=== PATIENT | female | born 1990 | race Caucasian/White ===

== ENCOUNTER 2016-09-05 19:50 | Emergency (ER) | payer BC, MEDICAID ==
[~2016-09-05] VITALS: Ht 160 cm; Wt 106.1 kg
--- NOTE | 2016-09-05 21:28 | ED EENT ---
History of Present Illness General Chief Complaint: Oral/Throat Problems Stated Complaint: SORE THROAT Nursing Triage Note: c/o sore throat since Wed. Hoarse voice noted. Denies known fever. History of Present Illness Time seen by provider: 08:25 Initial Comments Initial evaluation for sore throat. Patient reports that it began 3 days ago, she noticed some improvement, and then it worsened today. Timing/Duration: last week Severity: moderate Location: throat Prearrival Treatment: no prearrival treatment Modifying Factors: Improves With Rest Associated Symptoms: denies symptoms Allergies and Home Medications Allergies Coded Allergies: No Known Drug Allergies (Unverified , 06/25/10) Home Medications Azithromycin 500 Mg Tablet #4 500 MG PO DAILY Prescribed by: RUBENS JUAREZ on 09/05/162133 Review of Systems Constitutional: no symptoms reported see HPI Eyes: No Symptoms Reported See HPI Ears: No Symptoms Reported See HPI Nose: no symptoms reported see HPI Mouth: no symptoms reported see HPI Throat: see HPI pain hoarse painful swallowing Respiratory: no symptoms reported see HPI Cardiovascular: no symptoms reported see HPI Gastrointestinal: see HPI : No Musculoskeletal: no symptoms reported see HPI Skin: no symptoms reported see HPI Neurological: No Symptoms Reported See HPI Hematologic/Lymphatic: No Symptoms Reported See HPI Immunological/Allergic: no symptoms reported see HPI All Other Systems Reviewed Negative Unless Noted: Yes Past Dmaenhk-Eskemj-Ygtbmb Hx Patient Social History Alcohol Use: Occasionally Uses Recreational Drug Use: No Smoking Status: Never a Smoker Recent Foreign Travel: No Contact w/Someone Who Travel: No Recent Infectious Disease Expo: No Recent Hopitalizations: No Surgeries HX Surgeries: Yes (ear tubes age 8) Respiratory Hx Respiratory Disorders: No Cardiovascular Hx Cardiac Disorders: Yes Neurological Hx Neurological Disorders: No Reproductive System : No (10 days late on menses) Hx Reproductive Disorders: No Genitourinary Hx Genitourinary Disorders: No Gastrointestinal Hx Gastrointestinal Disorders: No Musculoskeletal Hx Musculoskeletal Disorders: No Endocrine Hx Endocrine Disorders: No HEENT HX ENT Disorders: No Psychosocial Hx Psychiatric Problems: No Blood Transfusions Hx Blood Disorders: No Reviewed Nursing Assessment Reviewed/Agree w Nursing PMH: Yes Physical Exam Vital Signs Vital Sign - Last 12Hours 09/05/16 20:21 Temp 99.5 Pulse 70 Resp 16 B/P 133/95 Pulse Ox 98 General Appearance: WD/WN no apparent distress Eyes: bilateral eye EOMI, bilateral eye PERRL, bilateral eye normal inspection Ears: bilateral ear TM normal, bilateral ear auricle normal, bilateral ear canal normal Nose: normal inspectionNo discharge Mouth/Throat: normal mouth inspectionNo dental tenderness, pharynx swelling pharynx tenderness tonsillar swelling voice changes Neck: full range of motion normal inspection lymphadenopathy (R) lymphadenopathy (L) Cardiovascular: normal peripheral pulses regular rate, rhythm no murmur Respiratory: chest non-tender lungs clear normal breath sounds Gastrointestinal: normal bowel sounds non tender soft Neurologic/Psychiatric: no motor/sensory deficits alert normal mood/affect oriented x 3 Skin: normal color warm/dryNo rash Progress/Results/Core Measures Results/Orders Lab Results Laboratory Tests Test 09/05/16 20:15 Range/Units Group A Streptococcus Screen NEGATIVE NEGATIVE My Orders Orders-RUBENS JUAREZ Urine Bedside (09/05/16 20:47) Azithromycin Tablet (Zithromax Tablet) (09/05/16 21:29) Vital Signs/I&O Vital Sign - Last 12Hours 09/05/16 09/05/16 20:21 21:45 Temp 99.5 97.0 Pulse 70 76 Resp 16 18 B/P 133/95 Pulse Ox 98 100 Blood Pressure Mean: 108 Point of Care Testing Urine -Bedside: Negative Progress Note : Time: 08:30 Progress Note Initial evaluation completed, group A strep negative. Patient reports being approximately 10 days late for her menstrual cycle, LMP 07/29/16. Will await bedside hCG for treatment plan. 2114 urine hCG negative. Treatment with Zithromax 500 mg po 5 days, first dose to be given prior to dismissal Departure Impression Impression: Primary Impression: Acute pharyngitis Qualified Code: J02.8 - Acute pharyngitis due to other specified organisms Disposition: HOME, SELF-CARE Condition: Stable Departure-Patient Inst. Decision time for Depature: 21:15 Referrals: NO,LOCAL PHYSICIAN (PCP) Primary Care Physician Patient Instructions: Sore Throat, Adult (DC) Add. Discharge Instructions: All discharge instructions reviewed with patient and/or family. Voiced understanding. Salt water gargles with warm water, every 1-2 hours when necessary Warm or cold fluids, 1-2 cups per hour. Alternate Tylenol 650 mg and ibuprofen 600 mg for fever or pain Return to emergency room for fever, difficulty breathing, difficulty swallowing , or changes in symptoms. Scripts Azithromycin 500 Mg [id number] Mg PO DAILY #4 TAB Ref 0 Prov:RUBENS JUAREZ 09/05/16 RUBENS JUAREZ Sep 05, 2016 21:28
[2016-09-05] MEDS ORDERED: AZITHROMYCIN 250 MG TAB (ZITHROMAX) PO STA (21:29)
[2016-09-05] MEDS ORDERED: AZIT500T5 PO (21:34)
[2016-09-05 21:45] VITALS: BP 145/99
== END 2016-09-05 21:45 | disposition home or self-care (01) ==
LOC: EDUNIT# 19:50 → ER 19:54
DX: J02.9 Acute pharyngitis, unspecified (principal)
CPT/HCPCS: 84703; 87430; 99282

== ENCOUNTER 2017-12-16 05:29 | Outpatient (CLI) | payer BC ==
[~2017-12-16] VITALS: Ht 160 cm; Wt 92.1 kg
[~2017-12-16 05:29] MED LIST: AZIT500T5 PO
[2017-12-20] MEDS ORDERED: IBUP-1773 PO (07:13)
[2017-12-20] MEDS ORDERED: ACHD5005 PO (07:13)
== END 2017-12-16 08:52 ==
LOC: PREOP 05:29
PROVIDERS: ATTEND Obstetrics & Gynecology
DX: Z01.818 Encounter for other preprocedural examination (principal); O02.1 Missed abortion

== ENCOUNTER 2017-12-19 09:52 | Emergency (ER) | payer BC ==
[~2017-12-19] VITALS: Ht 160 cm; Wt 92.1 kg
[2017-12-19 11:51] LABS: BASOPHILS % (AUTO) 0 % (0-10); EOSINOPHILS # (AUTO) 0.1 10^3/uL (0.0-0.3); EOSINOPHILS % (AUTO) 1 % (0-10); HEMATOCRIT 35 % (35-52); HEMOGLOBIN 11.9 G/DL (11.5-16.0); LYMPHOCYTES # (AUTO) 1.6 X 10^3 (1.0-4.0); LYMPHOCYTES % (AUTO) 18 % (12-44); MEAN CORPUSCULAR HEMOGLOBIN 27 PG (25-34); MEAN CORPUSCULAR HGB CONC 34 G/DL (32-36); MEAN CORPUSCULAR VOLUME 81 FL (80-99); MEAN PLATELET VOLUME 9.3 FL (7.4-10.4); MONOCYTES # (AUTO) 0.4 X 10^3 (0.0-1.0); MONOCYTES % (AUTO) 5 % (0-12); NEUTROPHILS # (AUTO) 6.7 X 10^3 (1.8-7.8); NEUTROPHILS % (AUTO) 76 % (42-75); PLATELET COUNT 253 10^3/uL (130-400); RED BLOOD COUNT 4.35 10^6/uL (4.35-5.85); RED CELL DISTRIBUTION WIDTH 14.4 % (10.0-14.5); WHITE BLOOD COUNT 8.9 10^3/uL (4.3-11.0)
[2017-12-19] MEDS ORDERED: TRAM50TA2 PO (12:03)
--- NOTE | 2017-12-19 12:04 | ED GU-Female ---
General Chief Complaint: -Female Stated Complaint: VAGINAL BLEEDING/ DNC SCHEDULED 12/20/17 Nursing Triage Note: pt ambulatory to the ed. pt states she is having a miscarriage and is scheduled for a d&c tomorrow with dr cavanaugh. pt believes she is approx 11 weeks and was told it was a blited ovum. pt states this is her second and has one living child. pt c/o pressure and cramps. pt states she is passing small clots to the size of baseball. soaked three pads in two hours. Nursing Sepsis Screen: No Definite Risk Source: patient Exam Limitations: no limitations History of Present Illness Date Seen by Provider: Dec 19, 2017 Time Seen by Provider: 11:50 Initial Comments The patient presents to ER by private conveyance with a chief complaint that she found out last week Wednesday 7 days ago she was having a miscarriage based on ultrasound did not show a pole in the sac. Dr. CAVANAUGH her VISITOR SERVICES REPRESENTATIVE ran some tests and then we discussed other options and decided to schedule for a D&C tomorrow. Today she started having a couple of large red blood clots pass as well as some cramping pain. She has not taken any Tylenol she did take an Aleve last night which worked for a while and today she took a Midol but then after she had the blood clots she panicked and called a friend who told her to go to the ER. She's not having any pain or nausea right now. She's not having any chest pain shortness of breath. She does not have a history of coronary disease but she says she does have a history of being anemic with her last . Allergies and Home Medications Allergies Coded Allergies: No Known Drug Allergies (Unverified , 06/25/10) Home Medications No Active Prescriptions or Reported Meds Patient Home Medication List Home Medication List Reviewed: Yes Review of Systems Constitutional: No chills, No diaphoresis, No fever EENTM: No hearing loss, No ear pain, No eye pain Respiratory: No cough, No short of breath Cardiovascular: No chest pain, No Hx of Intervention, No palpitations Gastrointestinal: abdominal pain; No constipation, No diarrhea, No nausea Genitourinary: denies burning, denies discharge, denies dysuria : No (incomplete miscarriage) Musculoskeletal: No back pain, No joint pain Skin: No pruritus, No rash Psychiatric/Neurological: Denies Headache, Denies Numbness Past Bxlavfc-Wgqyjx-Ujblcq Hx Patient Social History Alcohol Use: Denies Use Recreational Drug Use: No Recent Foreign Travel: No Contact w/Someone Who Travel: No Recent Infectious Disease Expo: No Recent Hopitalizations: No Seasonal Allergies Seasonal Allergies: Yes Past Medical History Surgeries: Yes (BMT, ) Respiratory: No Cardiac: No Neurological: No : Yes (active miscarriage) Hx : 1 Hx Para: 2 Hx Total # of Abortions (Sp): 0 Reproductive Disorders: No Gastrointestinal: No Musculoskeletal: No Endocrine: No Cancer: No Psychosocial: No Integumentary: No Blood Disorders: No Physical Exam Vital Signs Vital Signs - First Documented 12/19/17 11:24 Temp 97.9 Pulse 73 Resp 14 B/P (MAP) 143/91 (108) O2 Delivery Room Air Capillary Refill : Less Than 3 Seconds General Appearance: WD/WN, no apparent distress HEENT: PERRL/EOMI, pharynx normal Neck: non-tender, normal inspection Cardiovascular: normal peripheral pulses, regular rate, rhythm, no edema Respiratory: no respiratory distress, no accessory muscle use Extremities: normal inspection, no pedal edema, normal capillary refill Neurologic/Psychiatric: alert, normal mood/affect, oriented x 3 Skin: normal color, warm/dry Progress/Results/Core Measures Suspected Sepsis Recent Fever Within 48 Hours: No Infection Criteria Present: None New/Unexplained Altered Menta: No Sepsis Screen: No Definite Risk SIRS Temperature:97.9 Pulse: 73 Respiratory Rate: 14 Laboratory Tests 12/19/17 11:42: White Blood Count 8.9 Blood Pressure 143 /91 Mean: 108 Laboratory Tests 12/19/17 11:42: Platelet Count 253 Results/Orders Lab Results Laboratory Tests Test 12/19/17 11:42 Range/Units White Blood Count 8.9 4.3-11.0 10^3/uL Red Blood Count 4.35 4.35-5.85 10^6/uL Hemoglobin 11.9 11.5-16.0 G/DL Hematocrit 35 35-52 % Mean Corpuscular Volume 81 80-99 FL Mean Corpuscular Hemoglobin 27 25-34 PG Mean Corpuscular Hemoglobin Concent 34 32-36 G/DL Red Cell Distribution Width 14.4 10.0-14.5 % Platelet Count 253 130-400 10^3/uL Mean Platelet Volume 9.3 7.4-10.4 FL Neutrophils (%) (Auto) 76 H 42-75 % Lymphocytes (%) (Auto) 18 12-44 % Monocytes (%) (Auto) 5 0-12 % Eosinophils (%) (Auto) 1 0-10 % Basophils (%) (Auto) 0 0-10 % Neutrophils # (Auto) 6.7 1.8-7.8 X 10^3 Lymphocytes # (Auto) 1.6 1.0-4.0 X 10^3 Monocytes # (Auto) 0.4 0.0-1.0 X 10^3 Eosinophils # (Auto) 0.1 0.0-0.3 10^3/uL Basophils # (Auto) 0.0 0.0-0.1 10^3/uL Vital Signs/I&O 12/19/17 11:24 Temp 97.9 Pulse 73 Resp 14 B/P (MAP) 143/91 (108) O2 Delivery Room Air Capillary Refill : Less Than 3 Seconds Blood Pressure Mean: 108 Progress Note : Time: 12:00 Progress Note CBC demonstrates healthy hemoglobin. Relievers and tramadol as well as instructions to use NSAIDs followed by Tylenol followed by heating pads followed by tramadol. Departure Impression Primary Impression: Incomplete miscarriage with blood clot Disposition: HOME, SELF-CARE Condition: Stable Departure-Patient Inst. Decision time for Depature: 12:01 Referrals: NO,LOCAL PHYSICIAN (PCP) Primary Care Physician DOUGLAS CAVANAUGH DO Patient Instructions: Dealing With Miscarriage Add. Discharge Instructions: If you have pain you should start with 2 Aleve or for ibuprofen followed by Tylenol and heating pads, rest and getting something to drink such as water. If this does not help your pain then you can use tramadol 1 tablet every 6 hours. Keep your follow-up appointment tomorrow. All discharge instructions reviewed with patient and/or family. Voiced understanding. Scripts Tramadol HCl (Tramadol HCl) 50 Mg Tablet 50 MG PO Q6H PRN for PAIN, #20 TAB 0 Refills Prov: ROBB BURTON 12/19/17 Copy Copies To 1: DOUGLAS CAVANAUGH TITUS J Dec 19, 2017 12:04
[2017-12-19 12:11] VITALS: BP 143/91
[2017-12-20] MEDS ORDERED: ACHD5005 PO (07:13)
[2017-12-20] MEDS ORDERED: IBUP-1773 PO (07:13)
== END 2017-12-19 12:11 | disposition home or self-care (01) ==
LOC: EDUNIT# 09:52 → ER 09:55
DX: O03.2 Embolism following incomplete spontaneous abortion (principal); Z3A.11 11 weeks gestation of pregnancy
CPT/HCPCS: 36415; 85025; 99282

== ENCOUNTER 2017-12-20 05:48 | Day surgery (SDC) | payer BC ==
[~2017-12-20] VITALS: Ht 160 cm; Wt 92.1 kg
[~2017-12-20 05:48] MED LIST changes: +TRAM50TA2 PO
[2017-12-20 06:20] VITALS: BP 121/80
[2017-12-20] MEDS ORDERED: LACTATED RINGERS 1,000 ML IV PRN (06:28)
[2017-12-20] MEDS ORDERED: fentaNYL INJECTION 100 MCG/2 ML AMP ONE (06:41)
[2017-12-20] MEDS ORDERED: DEXAMETHASONE 10 MG/ML (DECADRON) 1 ML VIAL ONE (06:41)
[2017-12-20] MEDS ORDERED: proPOfol 200 MG/20 ML (DIPRIVAN) VIAL IV ONE (06:41)
[2017-12-20] MEDS ORDERED: ONDANSETRON 4 MG/2 ML (SDV) Z0FRAN ONE (06:41)
[2017-12-20] MEDS ORDERED: SEVOFLURANE (ULTANE) 15 ML INHAL SOLN ONE (06:42)
[2017-12-20] MEDS ORDERED: MIDAZOLAM 2 MG/2 ML (VERSED) VIAL ONE (06:42)
[2017-12-20] MEDS ORDERED: LIDOCAINE PF 2% 5 ML (XYLOCAINE) VIAL ONE (06:42)
[2017-12-20 06:51] LABS: BASOPHILS % (AUTO) 0 % (0-10); EOSINOPHILS # (AUTO) 0.2 10^3/uL (0.0-0.3); EOSINOPHILS % (AUTO) 3 % (0-10); HEMATOCRIT 33 % (35-52); LYMPHOCYTES # (AUTO) 1.8 X 10^3 (1.0-4.0); LYMPHOCYTES % (AUTO) 36 % (12-44); MEAN CORPUSCULAR HEMOGLOBIN 28 PG (25-34); MEAN CORPUSCULAR HGB CONC 34 G/DL (32-36); MEAN CORPUSCULAR VOLUME 82 FL (80-99); MEAN PLATELET VOLUME 9.7 FL (7.4-10.4); MONOCYTES # (AUTO) 0.3 X 10^3 (0.0-1.0); MONOCYTES % (AUTO) 6 % (0-12); NEUTROPHILS # (AUTO) 2.8 X 10^3 (1.8-7.8); NEUTROPHILS % (AUTO) 55 % (42-75); PLATELET COUNT 227 10^3/uL (130-400); RED BLOOD COUNT 3.97 10^6/uL (4.35-5.85); RED CELL DISTRIBUTION WIDTH 14.3 % (10.0-14.5); WHITE BLOOD COUNT 5.1 10^3/uL (4.3-11.0)
--- NOTE | 2017-12-20 07:07 | Progress Note-Pre Operative ---
Pre-Operative Progress Note H&P Reviewed The H&P was reviewed, patient examined and no changes noted. Date Seen by Provider: Dec 20, 2017 Time Seen by Provider: 07:00 Date H&P Reviewed: Dec 20, 2017 Time H&P Reviewed: 07:02 Pre-Operative Diagnosis: Missed DOUGLAS Ferguson DO Dec 20, 2017 7:07 am
[2017-12-20] MEDS ORDERED: D5 LR IV SOLUTION 1,000 ML IV SCH (07:11)
[2017-12-20] MEDS ORDERED: ACHD5005 PO (07:13)
[2017-12-20] MEDS ORDERED: IBUP-1773 PO (07:13)
--- NOTE | 2017-12-20 07:13 | Discharge Inst-Women's Service ---
Discharge Inst-Women's Serv Depart Medication/Instructions New, Converted or Re-Newed RX: RX on Chart Consults/Follow Up Additional Follow Up: Yes Orders/Referrals Dr. Cavanaugh in 3 weeks Activity Activity: Activity as Tolerated Driving Instructions: You May Drive (do not drive today) NO SMOKING: NO SMOKING Nothing Inside Vagina: No Douching, No [place], No Tampons Diet Discharge Diet: No Restrictions Symptoms to Report to : Bleeding Excessive, Pain Increased, Fever Over 101 Degrees F, Vaginal Bleeding Increase, Questions/Concerns For Any Problems or Questions: Contact Your Physician Skin/Wound Care Bathing Instructions: Shower (x 2 weeks) DOUGLAS CAVANAUGH DO Dec 20, 2017 7:12 am
[2017-12-20] MEDS ORDERED: KETOROLAC 30 MG/ML VIAL IVP ONE (07:15)
[2017-12-20] MEDS ORDERED: HYDROcodone/APAP 5 MG/325 MG (LORTAB) TAB PO PRN (07:15)
[2017-12-20] MEDS ORDERED: ONDANSETRON 4 MG/2 ML (SDV) Z0FRAN IVP PRN ×2 (07:15→08:00)
[2017-12-20] MEDS ORDERED: MEPERIDINE (DEMEROL) INJ 50 MG/ML IVP PRN (08:00)
[2017-12-20] MEDS ORDERED: HYDROmorphone 1 MG/ML (DILAUDID) 1 ML SYRINGE IV PRN (08:00)
[2017-12-20] MEDS ORDERED: fentaNYL INJECTION 100 MCG/2 ML AMP IVP PRN (08:00)
[2017-12-20 08:25] VITALS: BP 117/74
[2017-12-20 08:55] VITALS: BP 126/86
--- NOTE | 2017-12-20 14:23 | OPERATIVE REPORT ---
DATE OF SERVICE: PREOPERATIVE DIAGNOSIS: A 27-year-old female with missed AB. POSTOPERATIVE DIAGNOSIS: A 27-year-old female with missed AB. PROCEDURE: Suction D and C. SURGEON: Dr. Brody Fine. ANESTHESIA: General endotracheal. ESTIMATED BLOOD LOSS: 50 mL. URINE OUTPUT: 50 mL clear at the end of the procedure. FLUIDS: 800 mL of lactate Ringer solution. FINDINGS: There is a small to moderate amount of products of conception, grossly normal-appearing uterus and on bimanual normal appearing cervix and vaginal mucosa. SPECIMEN SENT: Products of conception. INDICATIONS FOR PROCEDURE: This 27-year-old female is a patient who had seen in my office late the previous week with finding of missed AB and a blighted ovum on ultrasound. There was a gestational sac measuring approximately 6 to 7 weeks gestation, but no pole or intragestational sac contents. A follow up hCG confirmed nonviability with a falling beta hCG. I discussed with the patient allowing this to proceed naturally on her own or proceeding with oral Cytotec. However, the patient wished to proceed with suction D and C after this was discussed with the patient. Risk of the procedure was discussed with the patient in detail including risk of bleeding, infection, damaging the uterus, postoperative bleeding and pain as well as postoperative potential complications, complications from anesthesia and even . After everything was discussed with the patient, consent was obtained in the preoperative area and the patient was taken to the operating room. OPERATIVE REPORT IN DETAIL: Once in the operating room, general anesthesia was found to be adequate. She was placed in the dorsal lithotomy position, prepped and draped in normal sterile fashion. She was first examined under anesthesia. Bimanual examination reveals an 8 week size uterus on bimanual. There was no adnexal fullness or masses appreciated. A straight catheter was used to drain the bladder. Weighted speculum was inserted to the patient's vagina. A right angle retractor was used to visualize the cervix, it was grasped at 12 o'clock position using a long Allis clamp. I then gently sound the cavity, depth was found to be 7 cm. I then selected a 7 cm rigid Portage suction curette and attached it to the Portage device. This is then easily placed into the uterine fundus with gentle resistance. No dilation is necessary at this point. The Portage is then activated and once 55 mmHg of pressure was obtained, I then methodically curette by rotating the rigid curette around the endometrium collecting the products of conception. This is done on 3 to 4 different passes after which a gentle curette was performed using a medium endometrial curette. Then, finally I make one final pass with the Portage suction device and there was no active bleeding noted. All other instruments were removed from the patient's vagina. The patient tolerated the procedure well and sent to recovery area in stable condition. Lap and sponge counts were correct at the end of the procedure. Instrument counts are correct as well. Job ID: [id number] DocumentID: [id number] Dictated Date: 12/20/2017 07:58:37 [employer] Developer Date: 12/20/2017 14:23:15 Dictated By: DO SWAPNA ARNOLD
== END 2017-12-20 09:15 | disposition home or self-care (01) ==
LOC: SDC 05:48
PROVIDERS: ATTEND Obstetrics & Gynecology
DX: O02.1 Missed abortion (principal)
CPT/HCPCS: 36415; 85025; 86850; 86900; 86901; 87081; 88305; 94664

== ENCOUNTER → 2019-09-20 | Outpatient (CLI) | payer BC ==
[~2019-09-20] MED LIST changes: +ACHD5005 PO; -AZIT500T5 PO; +AZIT500T9 PO; +IBUP-1773 PO; -TRAM50TA2 PO; +TRM50T PO
--- NOTE | 2019-09-20 14:33 | Diagnostic Imaging Report ---
INDICATION: Assessment during normal . TECHNIQUE: Multiple real-time grayscale images were obtained over the gravid uterus. COMPARISON: None FINDINGS: A single viable intrauterine currently in transverse orientation. Normal amount of amniotic fluid. Placenta along the posterior aspect without evidence for previa. Visualized anatomical structures including the bladder, stomach, intracranial structures as well as cord insertion site appearing unremarkable. Multiple structures are suboptimally and/or not able to be evaluated largely attributed to positioning. This includes the kidneys, four-chamber heart, three-vessel cord as well as spine. Maternal adnexa is not able to be well evaluated. Biometrical measurements are as follows: Biparietal 4.67 cm, age 20 weeks 1 days. Head circumference 17.92 cm, age 20 weeks 3 days. Abdominal circumference 15.36 cm, age 20 weeks 4 days. Femur length 3.23 cm, age 20 weeks 1 days. Sonographic estimate age: 20 weeks 3 days. Sonographic estimated date of delivery: 02/04/2020. Estimated Weight: 347 gm (+/- 51 gm). LMP percentile: 48%. heart rate: 129 beats per minute. number: 1 of 1. IMPRESSION: 1. Single viable intrauterine currently in transverse orientation. Sonographic estimated age 20 weeks 3 days for estimated date of delivery February 04, 2020. 2. No abnormalities demonstrated at this time. However, it is noted that there are multiple structures including the kidneys, heart, cord and spine which cannot be well assessed at the current examination. Consideration for follow-up imaging evaluation recommended. Dictated by: Dictated on workstation # [id number]
== END ==
LOC: RAD 10:10
PROVIDERS: ATTEND Nurse Practitioner Women's Health
DX: Z34.82 Encounter for supervision of other normal pregnancy, second trimester (principal); Z3A.20 20 weeks gestation of pregnancy
CPT/HCPCS: 76805

== ENCOUNTER 2019-12-28 12:37 | Observation (INO) | payer BC ==
[2019-12-28] VITALS (22 sets, daily range): BP systolic 135–187; BP diastolic 69–100
--- NOTE | 2019-12-28 12:30 | NUR ---
LJ WOLF presented to unit via ambulation for direct admit with c/o ELEVATED BP. Pt. weighed, gowned, voided, and to bed. EFHM and TOCO applied, VS taken. Pt. oriented to bed controls, call light, TV, heat, and A/C controls.
--- NOTE | 2019-12-28 13:33 | NUR ---
was called r/t BP's. new orders received.
[2019-12-28] MEDS ORDERED: LABETALOL 200 MG (NORMODYNE) TAB PO NR (13:45)
[2019-12-28] MEDS ORDERED: D5 LR IV SOLUTION 1,000 ML IV SCH (13:45)
[2019-12-28] MEDS ORDERED: BETAMETHASONE ACE/NA PHOS 6 MG/ML (CELESTONE SOLUSPAN) ONE (14:01)
--- NOTE | 2019-12-28 14:07 | NUR ---
Labetalol 200mg p.o. given per Dr's orders. POC reviewed with pt. 1408- up to BR. urine specimen collected, labeled and sent to lab. 1411- Betamethasone 12mg IM given in Lt.GM. pt back to bed. ultrasound here for OB sono and BPP.
--- NOTE | 2019-12-28 14:37 | NUR ---
monitoring resumed. pt reports headache better. will cont to monitor.
[2019-12-28 14:42] LABS: URINE CREATININE FOR RATIO 24 MG/DL (30-125); URINE PROTEIN FOR RATIO ONLY < 6 MG/DL (6-12)
--- NOTE | 2019-12-28 14:42 | NUR ---
#20g IV to Lt.hand x1 attempt by JACQUES Del Toro. site patent, secured with opsite. admission labs collected from site prior to IVF's infusing. x1 unsuccessful attempt by this RN.
--- NOTE | 2019-12-28 14:42 | Diagnostic Imaging Report ---
INDICATION: Hypertension. TECHNIQUE: Multiple real-time grayscale images were obtained over the gravid uterus. COMPARISON: 09/20/2019. FINDINGS: There is a single live fetus in a cephalic presentation. heart rate was recorded at 144 bpm. Placenta is posterior. Amniotic fluid index is 17.1 cm. Biophysical profile was performed and was normal at 8/8. Biometrical measurements are as follows: Biparietal 8.3 cm, age 33 weeks 4 days. Head circumference 30.5 cm, age 34 weeks 0 days. Abdominal circumference 30.0 cm, age 34 weeks 0 days. Femur length 3.7 cm, age 34 weeks 3 days. Sonographic estimate age: 34 weeks 0 days. Sonographic estimated date of delivery: 02/08/20. Estimated Weight: 2329 gm (+/- 340 gm). LMP percentile: 44%. heart rate: 144 beats per minute. number: 1 of 1. IMPRESSION: 1. Single live IUP at 34 weeks gestational age, showing normal interval growth when compared with prior study from 09/20/2019. 2. Biophysical profile score 8/8. Dictated by: Dictated on workstation # [id number]
--- NOTE | 2019-12-28 14:45 | NUR ---
here. monitor tracing and BP's reviewed
[2019-12-28 15:14] LABS: BASOPHILS % (AUTO) 0 % (0-10); EOSINOPHILS % (AUTO) 1 % (0-10); HEMATOCRIT 34 % (35-52); HEMOGLOBIN 11.4 G/DL (11.5-16.0); LYMPHOCYTES # (AUTO) 1.5 X 10^3 (1.0-4.0); LYMPHOCYTES % (AUTO) 17 % (12-44); MEAN CORPUSCULAR HEMOGLOBIN 29 PG (25-34); MEAN CORPUSCULAR HGB CONC 34 G/DL (32-36); MEAN CORPUSCULAR VOLUME 86 FL (80-99); MEAN PLATELET VOLUME 10.8 FL (7.4-10.4); MONOCYTES # (AUTO) 0.5 X 10^3 (0.0-1.0); MONOCYTES % (AUTO) 6 % (0-12); NEUTROPHILS # (AUTO) 6.6 X 10^3 (1.8-7.8); NEUTROPHILS % (AUTO) 76 % (42-75); PLATELET COUNT 203 10^3/uL (130-400); RED CELL DISTRIBUTION WIDTH 13.5 % (10.0-14.5); WHITE BLOOD COUNT 8.7 10^3/uL (4.3-11.0)
[2019-12-28 15:42] LABS: ALANINE AMINOTRANSFERASE 9 U/L (0-55); ALBUMIN 3.1 GM/DL (3.2-4.5); ALKALINE PHOSPHATASE 137 U/L (40-136); BILIRUBIN,TOTAL 0.3 MG/DL (0.1-1.0); BUN/CREATININE RATIO 12; CALCIUM 9.3 MG/DL (8.5-10.1); CARBON DIOXIDE 17 MMOL/L (21-32); CHLORIDE 105 MMOL/L (98-107); CREATININE SERUM 0.73 MG/DL (0.60-1.30); GFR ESTIMATED > 60; GLUCOSE 66 MG/DL (70-105); POTASSIUM 3.8 MMOL/L (3.6-5.0); SODIUM 136 MMOL/L (135-145); TOTAL PROTEIN 6.8 GM/DL (6.4-8.2)
--- NOTE | 2019-12-28 16:16 | History & Physical-OB ---
OB - Chief Complaint & HPI Date/Time Date of Admission: Date of Admission: Dec 28, 2019 at 1:33 pm Date seen by a Provider: Dec 28, 2019 Time Seen by a Provider: 14:30 Chief Complaint/History OB-Reason for Admission/Chief: Obstetrical Complication Hx : 3 Hx Para: 1 Expected Date of Delivery: Feb 05, 2020 Gestational Age in Weeks: 34 Gestational Age in Days: 3 Other reason for admission: Patient admitted for observation after calling office for khan, changes in vision, and reports BP 190s/110s at home. Upon evaluation here BP has come down a bit but still PreE levels. Reports headache is a bit better, and vision changes have stopped. Admission Nurse Assessment Rev: Yes History of Labs Laboratory Tests Test 12/28/19 14:20 12/28/19 14:47 Range/Units Urine Protein < 6 L 6-12 MG/DL Urine Creatinine 24 L 30-125 MG/DL Urine Protein/Creatinine Ratio White Blood Count 8.7 4.3-11.0 10^3/uL Red Blood Count 3.89 L 4.35-5.85 10^6/uL Hemoglobin 11.4 L 11.5-16.0 G/DL Hematocrit 34 L 35-52 % Mean Corpuscular Volume 86 80-99 FL Mean Corpuscular Hemoglobin 29 25-34 PG Mean Corpuscular Hemoglobin Concent 34 32-36 G/DL Red Cell Distribution Width 13.5 10.0-14.5 % Platelet Count 203 130-400 10^3/uL Mean Platelet Volume 10.8 H 7.4-10.4 FL Neutrophils (%) (Auto) 76 H 42-75 % Lymphocytes (%) (Auto) 17 12-44 % Monocytes (%) (Auto) 6 0-12 % Eosinophils (%) (Auto) 1 0-10 % Basophils (%) (Auto) 0 0-10 % Neutrophils # (Auto) 6.6 1.8-7.8 X 10^3 Lymphocytes # (Auto) 1.5 1.0-4.0 X 10^3 Monocytes # (Auto) 0.5 0.0-1.0 X 10^3 Eosinophils # (Auto) 0.0 0.0-0.3 10^3/uL Basophils # (Auto) 0.0 0.0-0.1 10^3/uL Sodium Level 136 135-145 MMOL/L Potassium Level 3.8 3.6-5.0 MMOL/L Chloride Level 105 98-107 MMOL/L Carbon Dioxide Level 17 L 21-32 MMOL/L Anion Gap 14 5-14 MMOL/L Blood Urea Nitrogen 9 7-18 MG/DL Creatinine 0.73 0.60-1.30 MG/DL Estimat Glomerular Filtration Rate > 60 BUN/Creatinine Ratio 12 Glucose Level 66 L 70-105 MG/DL Uric Acid 7.0 2.6-7.2 MG/DL Calcium Level 9.3 8.5-10.1 MG/DL Corrected Calcium 10.0 8.5-10.1 MG/DL Total Bilirubin 0.3 0.1-1.0 MG/DL Aspartate Amino Transf (AST/SGOT) 14 5-34 U/L Alanine Aminotransferase (ALT/SGPT) 9 0-55 U/L Alkaline Phosphatase 137 H 40-136 U/L Total Protein 6.8 6.4-8.2 GM/DL Albumin 3.1 L 3.2-4.5 GM/DL Allergies and Home Medications Allergies Coded Allergies: No Known Drug Allergies (Unverified , 06/25/10) Home Medications Hydrocodone Bit/Acetaminophen 1 Tab Tab, 1 TAB PO Q4H PRN for PAIN-MODERATE Prescribed by: DOUGLAS CAVANAUGH on 12/20/17 07 Ibuprofen 600 Mg Tablet, 600 MG PO Q6H Prescribed by: DOUGLAS CAVANAUGH on 12/20/17 07 Tramadol HCl 50 Mg Tablet, 50 MG PO Q6H PRN for PAIN Prescribed by: ROBB BURTON on 12/19/17 1203 Patient Home Medication List Home Medication List Reviewed: Yes OB - History Hx of Present Care: Yes Ultrasounds: Normal mid trimester US Obstetrical Complications: Gestational Hypertension Medical Complications: None Obstetrical History Hx Termination: No Hx Multiple Gestation: No Hx Stillbirth: No Hx Complication: No Hx Induced Hypertens: Yes Hx Maternal Gestational Diabet: No Delivery History Hx Dystocia: No Hx Large For Gestational Age I: No Hx Small for Gestational Age I: No Hx Section: No Hx Vaginal Delivery Post C-Sec: No Hx Blood Disorders: No Patient Past Medical History n/a OB - Admission Exam Physical Exam HEENT: NCAT Heart: Rhythm Normal Lungs: Clear Abdomen: Gravid Extremities: Normal Reflexes: Normal Heart Rate: 130's Accelerations: Accelerations Present Decelerations: No Decelerations Short Term Variability: Present Emergency Medcl Emt Variability: Average (6-25) Contractions on Admission: >10 Minutes Apart Intensity: Mild Labs Laboratory Tests Test 12/28/19 14:20 12/28/19 14:47 Range/Units Urine Protein < 6 L 6-12 MG/DL Urine Creatinine 24 L 30-125 MG/DL Urine Protein/Creatinine Ratio White Blood Count 8.7 4.3-11.0 10^3/uL Red Blood Count 3.89 L 4.35-5.85 10^6/uL Hemoglobin 11.4 L 11.5-16.0 G/DL Hematocrit 34 L 35-52 % Mean Corpuscular Volume 86 80-99 FL Mean Corpuscular Hemoglobin 29 25-34 PG Mean Corpuscular Hemoglobin Concent 34 32-36 G/DL Red Cell Distribution Width 13.5 10.0-14.5 % Platelet Count 203 130-400 10^3/uL Mean Platelet Volume 10.8 H 7.4-10.4 FL Neutrophils (%) (Auto) 76 H 42-75 % Lymphocytes (%) (Auto) 17 12-44 % Monocytes (%) (Auto) 6 0-12 % Eosinophils (%) (Auto) 1 0-10 % Basophils (%) (Auto) 0 0-10 % Neutrophils # (Auto) 6.6 1.8-7.8 X 10^3 Lymphocytes # (Auto) 1.5 1.0-4.0 X 10^3 Monocytes # (Auto) 0.5 0.0-1.0 X 10^3 Eosinophils # (Auto) 0.0 0.0-0.3 10^3/uL Basophils # (Auto) 0.0 0.0-0.1 10^3/uL Sodium Level 136 135-145 MMOL/L Potassium Level 3.8 3.6-5.0 MMOL/L Chloride Level 105 98-107 MMOL/L Carbon Dioxide Level 17 L 21-32 MMOL/L Anion Gap 14 5-14 MMOL/L Blood Urea Nitrogen 9 7-18 MG/DL Creatinine 0.73 0.60-1.30 MG/DL Estimat Glomerular Filtration Rate > 60 BUN/Creatinine Ratio 12 Glucose Level 66 L 70-105 MG/DL Uric Acid 7.0 2.6-7.2 MG/DL Calcium Level 9.3 8.5-10.1 MG/DL Corrected Calcium 10.0 8.5-10.1 MG/DL Total Bilirubin 0.3 0.1-1.0 MG/DL Aspartate Amino Transf (AST/SGOT) 14 5-34 U/L Alanine Aminotransferase (ALT/SGPT) 9 0-55 U/L Alkaline Phosphatase 137 H 40-136 U/L Total Protein 6.8 6.4-8.2 GM/DL Albumin 3.1 L 3.2-4.5 GM/DL OB - Assessment/Plan/Diagnosis Assessment Assessment: observation Admission Dx 29 yo @ 34 weeks Gestational HTN Hx of PCOS Admission Status: Observation Plan Other Plan Patient given BMZ, and started on Labetalol 200 mg tid. OB US ordered and prelim report looks WNL. Will monitor patient for now, consider dc either later tonight is BP is stable, or consider tomorrow morning. Repeat BMZ to be given tomorrow. DOUGLAS CAVANAUGH DO Dec 28, 2019 4:15 pm
--- NOTE | 2019-12-28 21:24 | NUR ---
Dr Fine notified of pt status and BP. ORder received to DC home with instructions.
[2019-12-28] MEDS ORDERED: LABE200T7 PO (21:39)
--- NOTE | 2019-12-28 21:51 | NUR ---
[facility] pharmacy called. message left for new prescription-labetalol 200 mg BID, 30 days.
--- NOTE | 2019-12-28 22:10 | NUR ---
Discharge instructions given. Note to not return to work given. Pt instructed to return to hospital tomorrow by 1400 for second betamethasone injection. pt verbalized understanding. discharge instructions signed. pt discharged ambulatory to private vehicle
[2019-12-29] MEDS ORDERED: BETAMETHASONE ACE/NA PHOS 6 MG/ML (CELESTONE SOLUSPAN) IM SCH (13:45)
== END 2019-12-28 22:15 | disposition home or self-care (01) ==
LOC: WSo 12:37 → LDRP 12:38 → WSo 13:32 → LDRP 13:33
PROVIDERS: ADMIT Obstetrics & Gynecology; ATTEND Obstetrics & Gynecology
DX: O16.3 Unspecified maternal hypertension, third trimester (principal); Z3A.34 34 weeks gestation of pregnancy; Z79.891 Long term (current) use of opiate analgesic; Z79.899 Other long term (current) drug therapy
CPT/HCPCS: 36415; 76805; 76819; 80053; 82570; 84156; 84550; 85025; 96360; 96361; 96372; 99211; G0378

== ENCOUNTER 2019-12-29 14:30 | Outpatient (CLI) | payer BC ==
--- NOTE | 2019-12-29 14:10 | NUR ---
pt ambulated to room 315 for ordered NST and blood pressure check. monitors applied. POC reviewed with pt, verbalized understanding. call light within reach.
[2019-12-29 14:18] VITALS: BP 138/81
[2019-12-29 14:20] VITALS: BP 136/81
--- NOTE | 2019-12-29 14:20 | NUR ---
was given update on admitting BP. pending dismissal order received after reactive NST.
[2019-12-29 14:30] VITALS: BP 137/85
[~2019-12-29 14:30] MED LIST changes: +LABE200T7 PO
[2019-12-29 14:40] VITALS: BP 136/85
[2019-12-29 14:50] VITALS: BP 137/86
[2019-12-29] MEDS ORDERED: BETAMETHASONE ACE/NA PHOS 6 MG/ML (CELESTONE SOLUSPAN) ONE (14:53)
--- NOTE | 2019-12-29 14:56 | NUR ---
Betamethasone 12mg IM given in Rt. GM. monitors d/c'd.
--- NOTE | 2019-12-29 15:00 | NUR ---
pt ambulated to private vehicle w/o sx's of distress. reviewed sx's to RTC.
[2019-12-30] MEDS ORDERED: BETAMETHASONE ACE/NA PHOS 6 MG/ML (CELESTONE SOLUSPAN) IM SCH (09:00)
--- NOTE | 2020-01-01 13:39 | Physician Query-Final Dx ---
MORENITA BYERS 01/01/20 1339: Clinic Account Progress/Dx Physician Query: Please give diagnosis Please include # weeks gestation Date of Service Dec 29, 2019 at 14:30 DOUGLAS CAVANAUGH DO 01/02/20 0757: Clinic Account Progress/Dx DIAGNOSIS: Diagnosis 34 week iup TANNATMORENITA MELGAR Jan 01, 2020 13:39 DOUGLAS CAVANAUGH DO Jan 02, 2020 07:57
== END 2019-12-29 15:00 | disposition home or self-care (01) ==
LOC: LDRP 14:30 → WSo 14:30
PROVIDERS: ATTEND Obstetrics & Gynecology
DX: O13.9 Gestational [pregnancy-induced] hypertension without significant proteinuria, unspecified trimester (principal); Z3A.34 34 weeks gestation of pregnancy
CPT/HCPCS: 59025; 96372

== ENCOUNTER 2020-01-15 18:33 | Inpatient (IN) | payer BC ==
[2020-01-15] VITALS (7 sets, daily range): BP systolic 122–164; BP diastolic 71–99
[~2020-01-15] VITALS: Ht 160 cm; Wt 110.0 kg
--- NOTE | 2020-01-15 18:40 | NUR ---
Arrived to unit ambulates self for induction of labor. wt obtained and to room 319. Oriented to room. Gowned and urine sample obtained. To bed. paperwork given to pt to complete at this time.
[2020-01-15] MEDS ORDERED: D5 LR IV SOLUTION 1,000 ML IV SCH (18:55)
[2020-01-15] MEDS ORDERED: MINERAL OIL CONCENTRATE 99.9% 15 ML UDC TOP PRN (19:00)
[2020-01-15 19:40] LABS: BILIRUBIN,URINE NEGATIVE (NEGATIVE); CLARITY,URINE SL CLOUDY; COLOR,URINE YELLOW; GLUCOSE, URINE (UA) NEGATIVE (NEGATIVE); KETONES,URINE NEGATIVE (NEGATIVE); LEUKOCYTE ESTERASE ,URINE 2+ (NEGATIVE); NITRITE,URINE NEGATIVE (NEGATIVE); PH,URINE 5.5 (5-9); PROTEIN,URINE 2+ (NEGATIVE)
[2020-01-15 19:49] LABS: BACTERIA,URINE MODERATE /HPF; CALCIUM OXALATE CRYSTALS,UR MODERATE /LPF; HYALINE CASTS, URINE RARE /LPF
[2020-01-15] MEDS ORDERED: MISOPROSTOL 100 MCG (CYTOTEC) TAB PO ONE (20:15)
[2020-01-15 20:23] LABS: BASOPHILS % (AUTO) 0 % (0-10); EOSINOPHILS # (AUTO) 0.1 10^3/uL (0.0-0.3); EOSINOPHILS % (AUTO) 1 % (0-10); HEMATOCRIT 30 % (35-52); LYMPHOCYTES # (AUTO) 1.4 X 10^3 (1.0-4.0); LYMPHOCYTES % (AUTO) 19 % (12-44); MEAN CORPUSCULAR HEMOGLOBIN 28 PG (25-34); MEAN CORPUSCULAR HGB CONC 33 G/DL (32-36); MEAN CORPUSCULAR VOLUME 86 FL (80-99); MEAN PLATELET VOLUME 10.8 FL (7.4-10.4); MONOCYTES # (AUTO) 0.4 X 10^3 (0.0-1.0); MONOCYTES % (AUTO) 5 % (0-12); NEUTROPHILS # (AUTO) 5.6 X 10^3 (1.8-7.8); NEUTROPHILS % (AUTO) 75 % (42-75); PLATELET COUNT 200 10^3/uL (130-400); RED CELL DISTRIBUTION WIDTH 13.6 % (10.0-14.5); WHITE BLOOD COUNT 7.4 10^3/uL (4.3-11.0)
[2020-01-15 20:41] LABS: ALANINE AMINOTRANSFERASE 7 U/L (0-55); ALBUMIN 2.9 GM/DL (3.2-4.5); ALKALINE PHOSPHATASE 159 U/L (40-136); BILIRUBIN,TOTAL 0.2 MG/DL (0.1-1.0); BUN/CREATININE RATIO 14; CALCIUM 8.8 MG/DL (8.5-10.1); CARBON DIOXIDE 19 MMOL/L (21-32); CHLORIDE 107 MMOL/L (98-107); CREATININE SERUM 0.83 MG/DL (0.60-1.30); GFR ESTIMATED > 60; GLUCOSE 139 MG/DL (70-105); POTASSIUM 3.7 MMOL/L (3.6-5.0); SODIUM 137 MMOL/L (135-145); TOTAL PROTEIN 6.4 GM/DL (6.4-8.2); URIC ACID 7.7 MG/DL (2.6-7.2)
--- OUTSIDE RECORDS SUMMARY | 2020-01-15 20:58 | XMS REPORT | Continuity of Care Document ---
Author Organization Unknown Address Unknown Phone Unavailable Allergies Active Description Code Type Severity Reaction Onset Reported/Identified Relationship to Patient Clinical Status Yes NO KNOWN DRUG ALLERGIES UNKNOWN NO KNOWN DRUG ALLERG Yes NO KNOWN DRUG ALLERGIES UNKNOWN UNKNOWN Yes No Known Drug Allergies [id number] Drug Allergy Unknown N/A 06/25/2010 Medications Medication Packaging Start Date St op Date Route Dosage Sig KETOROLAC VIAL INJ 30 MG/CC (TORADOL VIAL) MG 12/17/2016 12/17/2016 ONCE&0940 NORMAL SALINE 50CC IV BAG IN J 0 (NS 50CC MINI-BAG) ml 12/17/2016 12/17/2016 ONCE&0940 NORMAL SALINE 500CC IV BAG I NJ 0.9 % (NS 500CC IV BAG) ml 12/17/2016 12/17/2016 ONCE&0947 HYDROCODONE/APAP 7.5/325 TAB (LORNA-TAB 7.5/ 325) TAB 02/20/2019 03/02/2019 PRN EVERY 4 Hour LACTATED RINGERS 1000CC IV BAG INJ ml 02/20/2019 02/27/2019 CONTINUOUSEVERY 0 Hour CEFAZOLIN VIAL INJ 1 GM (ANCEF) GM 02/20/2019 02/20/2019 ONCE&1430 FENTANYL INJ 100 MCG/2CC VIAL MCG 02/20/2019 02/20/2019 ONCE&1651 ONDANSETRON VIAL INJ 4 MG/2CC (ZOFRAN 2CC VIAL) MG 02/20/2019 02/20/2019 PRN ONCE FENTANYL INJ 100 MCG/2CC VIAL MCG 02/20/2019 02/20/2019 ONCE&1706 METOCLOPRAMIDE VIAL INJ 10 M G/2CC (REGLAN 2CC VIAL) MG 02/20/2019 02/20/2019 PRN ONCE Problems Date Dx Coded Attending Type Code Diagnosis Diagnosed By 09/05/2016 RUBENS JUAREZ Ot J02.9 ACUTE PHARYNGITIS, UNSPECIFIED 09/07/2016 RUBENS JUAREZ Ot J02.9 ACUTE PHARYNGITIS, UNSPECIFIED 12/17/2016 ANTHONY MAEGAN MULLINS W E86 .0 DEHYDRATION 12/17/2016 Lovely Lopez A E86.0 DEHYDRATION 12/17/2016 Mary Jo Rios W E86.0 DEHYDRATION 12/17/2016 Samreen Lopeza W 462 ACUTE PHARYNGITIS 12/17/2016 Lovely Lopez W E86.0 DEHYDRATION 12/17/2016 Lovely Lopez W J02.9 ACUTE PHARYNGITIS, UNSPECIFIED 01/08/2017 RUBENS JUAREZ Ot J02.9 ACUTE PHARYNGITIS, UNSPECIFIED 2017 W 796.2 ELEV ATED BLOOD PRESSURE READING WITHOUT DIAGNOSIS OF HYPERTENSION 2017 A E906.4 BIT E OF NONVENOMOUS ARTHROPOD 2017 W R03.0 ELEV ATED BLOOD- PRESSURE READING, WITHOUT DIAGNOSIS OF HYPERTENSION 2017 A W57.XXXA B ITTEN OR STUNG BY NONVENOMOUS INSECT AND OTHER NONVENOMOUS ARTHROPODS, INITIAL ENCOUNTER 11/19/2017 W V22.2 PREG NANT STATE, INCIDENTAL 11/19/2017 W Z33.1 PREG NANT STATE, INCIDENTAL 12/16/2017 FENECH DO, DOUGLAS S Ot O02.1 MISSED 12/16/2017 CHETECH DO DOUGLAS S Ot Z01.818 ENCOUNTER FOR OTHER PREPROCEDURAL EXAMIN 12/16/2017 FENECH DO DOUGLAS S Ot O02.1 MISSED 12/16/2017 FENECH DO, DOUGLAS S Ot Z01.818 ENCOUNTER FOR OTHER PREPROCEDURAL EXAMIN 12/19/2017 ROBB BURTON MD Ot O03. 2 EMBOLISM FOLLOWING INCOMPLETE SPONTANEOU 12/19/2017 ROBB BURTON MD Ot O20. 9 HEMORRHAGE IN EARLY , UNSPECIFI 12/19/2017 ROBB BURTON MD Ot Z3A. 11 11 WEEKS GESTATION OF 12/20/2017 FENECH DO DOUGLAS S Ot O02.1 MISSED 12/22/2017 FENECH DO, DOUGLAS S Ot O02.1 MISSED 12/25/2017 ROBB BURTON MD Ot O03. 2 EMBOLISM FOLLOWING INCOMPLETE SPONTANEOU 12/25/2017 ROBB BURTON MD Ot O20. 9 HEMORRHAGE IN EARLY , UNSPECIFI 12/25/2017 MICHEAL LARA, ROBB Garvin Ot Z3A. 11 11 WEEKS GESTATION OF 12/26/2017 FENPLACIDO DOUGLAS URRUTIA Ot O02.1 MISSED 12/29/2017 CHETECH DOUGLAS URRUTIA Ot O02.1 MISSED 01/03/2019 W 724.2 LUMBAGO 01/03/2019 W M54.5 LOW BACK PAIN 02/08/2019 W 789.01 ABD OMINAL PAIN, RIGHT UPPER QUADRANT 02/08/2019 W R10.11 RIG HT UPPER QUADRANT PAIN 02/13/2019 John, Lovely W 789.01 ABDOMINAL PAIN, RIGHT UPPER QUADRANT 02/13/2019 John, Lovely W R10.11 RIGHT UPPER QUADRANT PAIN 02/13/2019 John, Lovely W 789.01 ABDOMINAL PAIN, RIGHT UPPER QUADRANT 02/13/2019 John, Lovely W R10.11 RIGHT UPPER QUADRANT PAIN 02/20/2019 Mary Jo Rios W 530.81 ESOPHAGEAL REFLUX 02/20/2019 Mary Jo Rios W 552.3 DIAPHRAGMATIC HERNIA WITH OBSTRUCTION 02/20/2019 Mary Jo Rios W 575.11 CHRONIC CHOLECYSTITIS 02/20/2019 Mary Jo Rios W J02.9 ACUTE PHARYNGITIS, UNSPECIFIED 02/20/2019 Mary Jo Rios W K21.0 GASTRO- ESOPHAGEAL REFLUX DISEASE WITH ESOPHAGITIS 02/20/2019 Mary Jo Rios W K44.9 DIAPHRAGMATIC HERNIA WITHOUT OBSTRUCTION OR GANGRENE 02/20/2019 Mary Jo Rios W K81.1 CHRONIC CHOLECYSTITIS 02/20/2019 Mary Jo Rios W M54.5 LOW BACK PAIN 02/20/2019 Mary Jo Rios W R03.0 ELEVATED BLOOD-PRESSURE READING, W/O DIAGNOSIS OF HTN 02/20/2019 Mary Jo Rios W R10.11 RIGHT UPPER QUADRANT PAIN 02/20/2019 Mary Jo Rios W W57.XXXA BIT/STUNG BY NONVENOM INSECT T OTH NONVENOM ARTHROPODS, INIT 02/20/2019 Mary Jo Rios W Z33.1 STATE, INCIDENTAL 09/22/2019 SHANNAN BOJORQUEZ APRN Ot Z34.82 ENCOUNTER FOR SUPRVSN OF NORMAL PREGNANC 09/22/2019 SHANNAN BOJORQUEZ APRN Ot Z3A.20 20 WEEKS GESTATION OF 09/22/2019 SHANNNA BOJORQUEZ HARPREET Ot Z34.82 ENCOUNTER FOR SUPRVSN OF NORMAL PREGNANC 09/22/2019 SHANNAN BOJORQUEZ HARPREET Ot Z3A.20 20 WEEKS GESTATION OF 10/05/2019 SHANNAN BOJORQUEZ HARPREET Ot Z34.82 ENCOUNTER FOR SUPRVSN OF NORMAL PREGNANC 10/05/2019 SHANNAN BOJORQUEZ HARPREET Ot Z3A.20 20 WEEKS GESTATION OF 11/23/2019 MAEGAN CRUZ APRN W 646 .61 INFECTIONS OF GENITOURINARY TRACT IN , DELIVERED, WITH OR WITHOUT MENTION OF ANTEPARTUM CONDITION 11/23/2019 MAEGAN CRUZ APRN W 648 .21 ANEMIA COMPLICATING , CHILDBIRTH, OR THE PUERPERIUM, DELIVERED, WITH OR WITHOUT MENTION OF ANTEPARTUM CONDITION 11/23/2019 MAEGAN CRUZ APRN W 782 .0 DISTURBANCE OF SKIN SENSATION 11/23/2019 MAEGAN CRZU APRN W J02 .9 ACUTE PHARYNGITIS, UNSPECIFIED 11/23/2019 MAEGAN CRUZ APRN W M54 .5 LOW BACK PAIN 11/23/2019 MAEGAN CRUZ APRN W O23 .43 UNSP INFCT OF URINARY TRACT IN , THIRD TRIMESTER 11/23/2019 MAEGAN CRUZ APRN W O99.013 ANEMIA COMPLICATING , THIRD TRIMESTER 11/23/2019 MAEGAN CRUZ APRN W R03 .0 ELEVATED BLOOD-PRESSURE READING, W/O DIAGNOSIS OF HTN 11/23/2019 MAEGAN CRUZ APRN W R10 .11 RIGHT UPPER QUADRANT PAIN 11/23/2019 MAEGAN CRUZ APRN W R20 .0 ANESTHESIA OF SKIN 11/23/2019 MAEGAN CRUZ APRN W W57.XXXA BIT/STUNG BY NONVENOM INSECT T OTH NONVENOM ARTHROPODS , INIT 11/23/2019 MAEGAN CRUZ APRN W Z33 .1 STATE, INCIDENTAL 11/23/2019 MAEGAN CRUZ APRN W Z3A .29 29 WEEKS GESTATION OF 12/28/2019 FENECH DODOUGLAS S Ot O16.3 UNSPECIFIED MATERNAL HYPERTENSION, THIRD 12/28/2019 FENECH DODOUGLAS Ot Z3A.34 34 WEEKS GESTATION OF 12/28/2019 DOUGLAS FINE DO Ot Z79.891 JAIL (CURRENT) USE OF OPIATE ANALGE 12/28/2019 DOUGLAS FINE DO Ot Z79.899 OTHER JAIL (CURRENT) DRUG THERAPY 01/03/2020 DOUGLAS FINE DO Ot O13.9 GESTATIONAL HTN W/O SIGNIFICANT PROTEINU 01/03/2020 DOUGLAS FINE DO Ot Z3A.34 34 WEEKS GESTATION OF 01/08/2020 DOUGLAS FINE DO Ot O16.3 UNSPECIFIED MATERNAL HYPERTENSION, THIRD 01/08/2020 DOUGLAS FINE DO Ot Z3A.34 34 WEEKS GESTATION OF 01/08/2020 DOUGLAS FINE DO Ot Z79.891 JAIL (CURRENT) USE OF OPIATE ANALGE 01/08/2020 DOUGLAS FINE DO Ot Z79.899 OTHER JAIL (CURRENT) DRUG THERAPY Procedures There is no data. Results Test Result Range Streptococcus pyogenes antigen detection - 09/05/16 20:15 Streptococcus pyogenes antigen detection NEGATIVE NEGATIVE Bacterial throat culture - 09/05/16 20:1 5 Bacterial throat culture NBS NR Complete blood count (CBC) with automate d white blood cell (WBC) differential - 12/19/17 11:42 Blood leukocytes automated count (number/volume) 8.9 10*3/uL 4.3-11.0 Blood erythrocytes automated count (number/volume) 4.35 10*6/uL 4.35-5.85 Venous blood hemoglobin measurement (mass/volume) 11.9 g/dL 11.5-16.0 Blood hematocrit (volume fraction) 35 % 35-52 Automated erythrocyte mean corpuscular volume 81 [ foz_us] 80-99 Automated erythrocyte mean corpuscular h emoglobin (mass per erythrocyte) 27 pg 25-34 Automated erythrocyte mean corpuscular h emoglobin concentration measurement (mass/volume) 34 g/dL 32-36 Automated erythrocyte distribution width ratio 14. 4 % 10.0- 14.5 Automated blood platelet count (count/volume) 253 10*3/uL 130-400 Automated blood platelet mean volume measurement 9.3 [foz_us] 7.4-10.4 Automated blood neutrophils/100 leukocytes 76 % 42-75 Automated blood lymphocytes/100 leukocytes 18 % 12-44 Blood monocytes/100 leukocytes 5 % 0-12 Automated blood eosinophils/100 leukocytes 1 % 0-10 Automated blood basophils/100 leukocytes 0 % 0-10 Blood neutrophils automated count (number/volume) 6.7 10*3 1.8-7.8 Blood lymphocytes automated count (number/volume) 1.6 10*3 1.0-4.0 Blood monocytes automated count (number/volume) 0. 4 10*3 0.0-1.0 Automated eosinophil count 0.1 10*3/uL 0 .0-0.3 Automated blood basophil count (count/volume) 0.0 10*3/uL 0.0-0.1 Methicillin resistant Staphylococcus aur eus (MRSA) screening culture - 12/20/17 06:15 Methicillin resistant Staphylococcus aureus (MRSA) scr eening culture NEG NRG Complete blood count (CBC) with automate d white blood cell (WBC) differential - 12/20/17 06:20 Blood leukocytes automated count (number/volume) 5.1 10*3/uL 4.3-11.0 Blood erythrocytes automated count (number/volume) 3.97 10*6/uL 4.35-5.85 Venous blood hemoglobin measurement (mass/volume) 11.0 g/dL 11.5-16.0 Blood hematocrit (volume fraction) 33 % 35-52 Automated erythrocyte mean corpuscular volume 82 [ foz_us] 80-99 Automated erythrocyte mean corpuscular h emoglobin (mass per erythrocyte) 28 pg 25-34 Automated erythrocyte mean corpuscular h emoglobin concentration measurement (mass/volume) 34 g/dL 32-36 Automated erythrocyte distribution width ratio 14. 3 % 10.0- 14.5 Automated blood platelet count (count/volume) 227 10*3/uL 130-400 Automated blood platelet mean volume measurement 9.7 [foz_us] 7.4-10.4 Automated blood neutrophils/100 leukocytes 55 % 42-75 Automated blood lymphocytes/100 leukocytes 36 % 12-44 Blood monocytes/100 leukocytes 6 % 0-12 Automated blood eosinophils/100 leukocytes 3 % 0-10 Automated blood basophils/100 leukocytes 0 % 0-10 Blood neutrophils automated count (number/volume) 2.8 10*3 1.8-7.8 Blood lymphocytes automated count (number/volume) 1.8 10*3 1.0-4.0 Blood monocytes automated count (number/volume) 0. 3 10*3 0.0-1.0 Automated eosinophil count 0.2 10*3/uL 0 .0-0.3 Automated blood basophil count (count/volume) 0.0 10*3/uL 0.0-0.1 Blood type T Indirect antibody screen pa michelle - 12/20/17 06:20 ABO+Rh group OP NRG Transfusion band number [id number] NRG Blood group antibody screen NEGATIVE NR G Beta HCG - 01/26/18 08:52 Beta HCG 6 mIU/mL 5-25 Beta HCG - 02/02/18 08:41 Beta HCG < 5 mIU/mL BMP - 01/03/19 10:12 Anion Gap 13 6-14 BUN 12 mg/dL 5-25 Calcium 9.0 mg/dL 8.3-10.4 Chloride 103 mmol/L 95-114 CO2 26 mEq/L 22-33 Creat 0.73 mg/dL 0.50-1.50 eGFR 94 mL/min/1.73m2 >59 Glucose 96 mg/dL 70-110 Osmo 285 280-295 Potassium 4.1 mmol/L 3.5-5.3 Sodium 138 mmol/L 134-148 Urine Culture - 01/03/19 10:12 PRELIM CULTURE RESULTS 20,000-50,000 Gram Po sitive Mixed Dotty [id number] Skin Contaminant FINAL CULTURE RESULTS 20,000-50,000 Gram Pos itive Mixed Dotty [id number] Skin Contaminant [id number] Further Workup done MEDIA PLATED Setup at 10:42 on 01/03/2019 CULTURE SOURCE reflex clean catch Test-Serum - 02/20/19 11:23 Preg Test-S Negative Negative MRSA Screen - 02/20/19 11:35 FINAL CULTURE RESULTS MRSA Negative Nasal Culture MEDIA PLATED Setup at 12:02 on 02/20/2019 Surgical Pathology - 02/20/19 15:27 Surg Path [facility] Urinalysis - 11/23/19 10:46 Icotest N/A Negative Urine Volume Urine Volume Sufficient (10mL) Urine-Appearance Cloudy Clear Urine-Bacteria 2+ Urine-Bilirubin Negative Negative Urine-Blood Negative Negative Urine-Color Yellow Colorless-Lt. [place] ow Urine-Epithelial Cells 10-20/HPF Urine-Glucose Negative Negative Urine-Ketones Negative Negative Urine-Leukocytes 1+ Negative Urine-Nitrite Negative Negative Urine-Other Culture to follow Urine-pH 5.5 5-8.5 Urine-Protein Negative Negative Urine-Specific Catarina >=1.030 1.000-1 .030 Urine-WBC 10-20/HPF Urobilinogen 0.2 E.U./dL 0.2-1.0 Comprehensive Metabolic Panel - 11/23/19 11:04 Albumin 3.3 g/dL 3.6-5.1 ALP 111 U/L 35-130 ALT 14 U/L 6-45 Anion Gap 13 6-14 AST 18 U/L 2-40 BUN 7 mg/dL 5-25 Calcium 8.7 mg/dL 8.3-10.4 Chloride 106 mmol/L 95-114 CO2 19 mEq/L 22-33 Creat 0.64 mg/dL 0.50-1.50 eGFR 109 mL/min/1.73m2 >59 Globulin 3.7 g/dL 2.3-3.5 Glucose 92 mg/dL 70-110 Osmo 275 280-295 Potassium 3.7 mmol/L 3.5-5.3 Sodium 134 mmol/L 134-148 TBil 0.3 mg/dL 0.2-1.2 TP 7.0 g/dL 6.0-8.3 Urine Culture - 11/23/19 11:21 PRELIM CULTURE RESULTS >100,000 Mixed Dotty. FINAL CULTURE RESULTS >100,000 Mixed Dotty MEDIA PLATED Setup at 15:53 on 11/23/2019 CULTURE SOURCE clean catch from ER reflex Urine protein/creatinine mass ratio - 14:20 Urine protein measurement (mass/volume) < mg/dL 6-12 Urine creatinine measurement (mass/volume) 24 mg/d L 30-125 Urine protein/creatinine mass ratio TNP NRG Complete blood count (CBC) with automate d white blood cell (WBC) differential - 12/28/19 14:47 Blood leukocytes automated count (number/volume) 8.7 10*3/uL 4.3-11.0 Blood erythrocytes automated count (number/volume) 3.89 10*6/uL 4.35-5.85 Venous blood hemoglobin measurement (mass/volume) 11.4 g/dL 11.5-16.0 Blood hematocrit (volume fraction) 34 % 35-52 Automated erythrocyte mean corpuscular volume 86 [ foz_us] 80-99 Automated erythrocyte mean corpuscular h emoglobin (mass per erythrocyte) 29 pg 25-34 Automated erythrocyte mean corpuscular h emoglobin concentration measurement (mass/volume) 34 g/dL 32-36 Automated erythrocyte distribution width ratio 13. 5 % 10.0- 14.5 Automated blood platelet count (count/volume) 203 10*3/uL 130-400 Automated blood platelet mean volume measurement 10.8 [foz_us] 7.4-10.4 Automated blood neutrophils/100 leukocytes 76 % 42-75 Automated blood lymphocytes/100 leukocytes 17 % 12-44 Blood monocytes/100 leukocytes 6 % 0-12 Automated blood eosinophils/100 leukocytes 1 % 0-10 Automated blood basophils/100 leukocytes 0 % 0-10 Blood neutrophils automated count (number/volume) 6.6 10*3 1.8-7.8 Blood lymphocytes automated count (number/volume) 1.5 10*3 1.0-4.0 Blood monocytes automated count (number/volume) 0. 5 10*3 0.0-1.0 Automated eosinophil count 0.0 10*3/uL 0 .0-0.3 Automated blood basophil count (count/volume) 0.0 10*3/uL 0.0-0.1 Comprehensive metabolic panel - 12/28/19 14:47 Serum or plasma sodium measurement (moles/volume) 136 mmol/L 135-145 Serum or plasma potassium measurement (moles/volume) 3.8 mmol/L 3.6-5.0 Serum or plasma chloride measurement (moles/volume) 105 mmol/L 98-107 Carbon dioxide 17 mmol/L 21-32 Serum or plasma anion gap determination (moles/volume) 14 mmol/L 5-14 Serum or plasma urea nitrogen measurement (mass/volume ) 9 mg/dL 7-18 Serum or plasma creatinine measurement (mass/volume) 0.73 mg/dL 0.60-1.30 Serum or plasma urea nitrogen/creatinine mass ratio 12 NRG Serum or plasma creatinine measurement w ith calculation of estimated glomerular filtration rate > NRG Serum or plasma glucose measurement (mass/volume) 66 mg/dL 70-105 Serum or plasma calcium measurement (mass/volume) 9.3 mg/dL 8.5-10.1 Serum or plasma total bilirubin measurement (mass/volu me) 0.3 mg/dL 0.1-1.0 Serum or plasma alkaline phosphatase beto surement (enzymatic activity/volume) 137 U/L 40-136 Serum or plasma aspartate aminotransfera se measurement (enzymatic activity/volume) 14 U/L 5-34 Serum or plasma alanine aminotransferase measurement (enzymatic activity/volume) 9 U/L 0-55 Serum or plasma protein measurement (mass/volume) 6.8 g/dL 6.4-8.2 Serum or plasma albumin measurement (mass/volume) 3.1 g/dL 3.2-4.5 CALCIUM CORRECTED 10.0 mg/dL 8.5-10.1 Serum or plasma uric acid measurement (m ass/volume) - 12/28/19 14:47 Serum or plasma uric acid measurement (mass/volume) 7.0 mg/dL 2.6-7.2 [id number] - 12/28/19 14:47 [id number] SPECIMEN AVAILABLE NRG Encounters ACCT No. Visit Date/Time Discharge Status Pt. Type Provider Facility Loc./Unit Complaint [id number] 11/23/2019 10:38:00 11/23/2019 11:48 :00 DIS Outpatient MAEGAN CRUZ APRN [facility] [id number] 06/09/2019 13:31:00 06/09/2019 23:59: 00 DIS Outpatient Lovely Lopez [id number] 04/24/2019 14:10:00 04/24/2019 23:59: 00 DIS Outpatient JULIANA WALLER [id number] 02/20/2019 00:00:00 02/20/2019 17:45: 00 DIS Outpatient Mary Jo Rios [id number] 02/15/2019 12:02:00 02/15/2019 23:59: 00 DIS Outpatient Mary Jo Rios [id number] 02/13/2019 09:48:00 02/13/2019 23:59: 00 DIS Outpatient Lovely Lopez [id number] 01/03/2019 10:03:00 01/03/2019 23:59: 00 DIS Outpatient Jane Deng [id number] 03/29/2018 10:02:00 03/29/2018 23:59: 00 DIS Outpatient SELFJULIANA [id number] 02/02/2018 08:38:00 02/02/2018 23:59: 00 DIS Outpatient Douglas Fine [id number] 01/26/2018 08:44:00 01/26/2018 23:59: 00 DIS Outpatient Douglas Fine [id number] 04/20/2017 09:16:00 04/20/2017 23:59: 00 DIS Outpatient SELF, JULIANA [id number] 12/17/2016 09:20:00 12/17/2016 12:00: 00 DIS Outpatient Lovely Lopez [id number] 05/04/2016 13:28:00 05/04/2016 23:59: 00 DIS Outpatient SRIDHAR, JULIANA [id number] 02/08/2019 14:27:00 Document Registration [id number] 01/03/2019 08:19:00 Document Registration [id number] 11/19/2017 13:19:00 Document Registration [id number] 2017 10:49:00 Document Registration [id number] 12/17/2016 09:49:18 Document Registration [id number] 01/03/2019 10:03:00 Document Registration [id number] 12/29/2019 14:30:00 020 15:00:00 DIS Outpatient AFSHAN DO DOUGLAS Jose [facility] WSo NON STRESS TEST [id number] 12/28/2019 12:30:00 020 21:33:00 DIS Outpatient AFSHAN URRUTIA DOUGLAS Jose [facility] LDRP ELEVATED BP [id number] 09/20/2019 10:10:00 020 23:59:59 CLS Outpatient SHANNAN BOJORQUEZ APRN [facility] RAD [id number] 12/20/2017 05:48:00 018 09:15:00 DIS Outpatient CHETPLACIDO DO DOUGLAS Jose [facility] SDC MISSED AB [id number] 12/19/2017 09:55:00 018 12:11:00 DIS Emergency ROBB BURTON MD [facility] ER VAGINAL BLEEDING/ DNC SCHEDULED 12/20/17 [id number] 12/16/2017 05:29:00 018 08:52:00 DIS Outpatient AFSHAN DO DOUGLAS Jose [facility] PREOP MISSED AB [id number] 09/05/2016 19:54:00 017 21:45:00 DIS Emergency LARRY, RUBENS PLANER TAILER [facility] ER SORE THROAT [id number] 01/15/2020 18:33:[address] Inpatient DOUGLAS FINE DO [facility] LDRP INDUCTION
--- NOTE | 2020-01-15 21:00 | NUR ---
2100: cloth bleaching supervisor called for request of OR crew including recovery nurse. 2104: Pt. prepped for surgery. Consent reviewed and signed. Pt. and SO given OR attire. 2107: OR meds given. 2114: Dr. Fine in house and in pt room to review plan. Pt. agrees and all questions are answered. 2131: Pt. back to OR via bed.
[2020-01-15] MEDS: LACTATED RINGERS 1,000 ML IV PRN ×2 (21:05→21:35)
[2020-01-15] MEDS ORDERED: fentaNYL INJECTION 100 MCG/2 ML AMP ONE (21:23)
--- NOTE | 2020-01-15 21:26 | History & Physical-OB ---
OB - Chief Complaint & HPI Date/Time Date of Admission: Date of Admission: Jan 15, 2020 at 18:33 Date seen by a Provider: Jan 15, 2020 Time Seen by a Provider: 21:00 Chief Complaint/History OB-Reason for Admission/Chief: Induction of Labor Hx : 3 Hx Para: 1 Expected Date of Delivery: Feb 05, 2020 Gestational Age in Weeks: 37 Gestational Age in Days: 0 Indication for induction: medical complication Admission Nurse Assessment Rev: Yes History of Labs Laboratory Tests Test 01/15/20 19:20 01/15/20 20:12 Range/Units Urine Color YELLOW Urine Clarity SL CLOUDY Urine pH 5.5 5-9 Urine Specific [place] >=1.030 1.016-1.022 Urine Protein 2+ H NEGATIVE Urine Glucose (UA) NEGATIVE NEGATIVE Urine Ketones NEGATIVE NEGATIVE Urine Nitrite NEGATIVE NEGATIVE Urine Bilirubin NEGATIVE NEGATIVE Urine Urobilinogen 1.0 < = 1.0 MG/DL Urine Leukocyte Esterase 2+ H NEGATIVE Urine RBC (Auto) NEGATIVE NEGATIVE Urine RBC NONE /HPF Urine WBC 5-10 H /HPF Urine Squamous Epithelial Cells 5-10 /HPF Urine Crystals PRESENT H /LPF Urine Calcium Oxalate Crystals MODERATE H /LPF Urine Bacteria MODERATE H /HPF Urine Casts PRESENT /LPF Urine Hyaline Casts RARE /LPF Urine Mucus SMALL H /LPF Urine Culture Indicated YES White Blood Count 7.4 4.3-11.0 10^3/uL Red Blood Count 3.54 L 4.35-5.85 10^6/uL Hemoglobin 10.0 L 11.5-16.0 G/DL Hematocrit 30 L 35-52 % Mean Corpuscular Volume 86 80-99 FL Mean Corpuscular Hemoglobin 28 25-34 PG Mean Corpuscular Hemoglobin Concent 33 32-36 G/DL Red Cell Distribution Width 13.6 10.0-14.5 % Platelet Count 200 130-400 10^3/uL Mean Platelet Volume 10.8 H 7.4-10.4 FL Neutrophils (%) (Auto) 75 42-75 % Lymphocytes (%) (Auto) 19 12-44 % Monocytes (%) (Auto) 5 0-12 % Eosinophils (%) (Auto) 1 0-10 % Basophils (%) (Auto) 0 0-10 % Neutrophils # (Auto) 5.6 1.8-7.8 X 10^3 Lymphocytes # (Auto) 1.4 1.0-4.0 X 10^3 Monocytes # (Auto) 0.4 0.0-1.0 X 10^3 Eosinophils # (Auto) 0.1 0.0-0.3 10^3/uL Basophils # (Auto) 0.0 0.0-0.1 10^3/uL Sodium Level 137 135-145 MMOL/L Potassium Level 3.7 3.6-5.0 MMOL/L Chloride Level 107 98-107 MMOL/L Carbon Dioxide Level 19 L 21-32 MMOL/L Anion Gap 11 5-14 MMOL/L Blood Urea Nitrogen 12 7-18 MG/DL Creatinine 0.83 0.60-1.30 MG/DL Estimat Glomerular Filtration Rate > 60 BUN/Creatinine Ratio 14 Glucose Level 139 H 70-105 MG/DL Uric Acid 7.7 H 2.6-7.2 MG/DL Calcium Level 8.8 8.5-10.1 MG/DL Corrected Calcium 9.7 8.5-10.1 MG/DL Total Bilirubin 0.2 0.1-1.0 MG/DL Aspartate Amino Transf (AST/SGOT) 11 5-34 U/L Alanine Aminotransferase (ALT/SGPT) 7 0-55 U/L Alkaline Phosphatase 159 H 40-136 U/L Total Protein 6.4 6.4-8.2 GM/DL Albumin 2.9 L 3.2-4.5 GM/DL Allergies and Home Medications Allergies Coded Allergies: No Known Drug Allergies (Unverified , 06/25/10) Home Medications Labetalol HCl 200 Mg Tablet, 200 MG PO BID Prescribed by: BONITA PITT on 12/28/19 6525 Patient Home Medication List Home Medication List Reviewed: Yes OB - History Hx of Present Care: Yes Ultrasounds: Normal mid trimester US Obstetrical Complications: Pre-eclampsia Medical Complications: None Obstetrical History Hx Termination: No Hx Multiple Gestation: No Hx Stillbirth: No Hx Complication: No Hx Induced Hypertens: Yes Hx Maternal Gestational Diabet: No Delivery History Hx Dystocia: No Hx Large For Gestational Age I: No Hx Small for Gestational Age I: No Hx Section: No Hx Vaginal Delivery Post C-Sec: No Hx Blood Disorders: No Adverse Rxn to Tranfusion: No Patient Past Medical History n/a Social History/Family History Recent Infectious Disease Expo: No Alcohol Use: Denies Use Recreational Drug Use: No Immunizations Hepatitis A: Yes Hepatitis B: Yes OB - Admission Exam Physical Exam Vitals: Vital Signs 01/15/20 20:17 Temp 36.8 Pulse 88 Resp 18 Pulse Ox 97 O2 Delivery Room Air HEENT: NCAT Heart: Rhythm Normal Lungs: Clear Abdomen: Gravid Extremities: Normal Reflexes: Normal Cervical Dilatation: 1cm Effacement: 75% Station: -1 Membranes: Intact Heart Rate: 130's Accelerations: Accelerations Present Decelerations: Variable Decelerations Short Term Variability: Present Mica Builder Variability: Average (6-25) Contractions on Admission: >10 Minutes Apart Intensity: Mild Labs Laboratory Tests Test 01/15/20 19:20 01/15/20 20:12 Range/Units Urine Color YELLOW Urine Clarity SL CLOUDY Urine pH 5.5 5-9 Urine Specific [place] >=1.030 1.016-1.022 Urine Protein 2+ H NEGATIVE Urine Glucose (UA) NEGATIVE NEGATIVE Urine Ketones NEGATIVE NEGATIVE Urine Nitrite NEGATIVE NEGATIVE Urine Bilirubin NEGATIVE NEGATIVE Urine Urobilinogen 1.0 < = 1.0 MG/DL Urine Leukocyte Esterase 2+ H NEGATIVE Urine RBC (Auto) NEGATIVE NEGATIVE Urine RBC NONE /HPF Urine WBC 5-10 H /HPF Urine Squamous Epithelial Cells 5-10 /HPF Urine Crystals PRESENT H /LPF Urine Calcium Oxalate Crystals MODERATE H /LPF Urine Bacteria MODERATE H /HPF Urine Casts PRESENT /LPF Urine Hyaline Casts RARE /LPF Urine Mucus SMALL H /LPF Urine Culture Indicated YES White Blood Count 7.4 4.3-11.0 10^3/uL Red Blood Count 3.54 L 4.35-5.85 10^6/uL Hemoglobin 10.0 L 11.5-16.0 G/DL Hematocrit 30 L 35-52 % Mean Corpuscular Volume 86 80-99 FL Mean Corpuscular Hemoglobin 28 25-34 PG Mean Corpuscular Hemoglobin Concent 33 32-36 G/DL Red Cell Distribution Width 13.6 10.0-14.5 % Platelet Count 200 130-400 10^3/uL Mean Platelet Volume 10.8 H 7.4-10.4 FL Neutrophils (%) (Auto) 75 42-75 % Lymphocytes (%) (Auto) 19 12-44 % Monocytes (%) (Auto) 5 0-12 % Eosinophils (%) (Auto) 1 0-10 % Basophils (%) (Auto) 0 0-10 % Neutrophils # (Auto) 5.6 1.8-7.8 X 10^3 Lymphocytes # (Auto) 1.4 1.0-4.0 X 10^3 Monocytes # (Auto) 0.4 0.0-1.0 X 10^3 Eosinophils # (Auto) 0.1 0.0-0.3 10^3/uL Basophils # (Auto) 0.0 0.0-0.1 10^3/uL Sodium Level 137 135-145 MMOL/L Potassium Level 3.7 3.6-5.0 MMOL/L Chloride Level 107 98-107 MMOL/L Carbon Dioxide Level 19 L 21-32 MMOL/L Anion Gap 11 5-14 MMOL/L Blood Urea Nitrogen 12 7-18 MG/DL Creatinine 0.83 0.60-1.30 MG/DL Estimat Glomerular Filtration Rate > 60 BUN/Creatinine Ratio 14 Glucose Level 139 H 70-105 MG/DL Uric Acid 7.7 H 2.6-7.2 MG/DL Calcium Level 8.8 8.5-10.1 MG/DL Corrected Calcium 9.7 8.5-10.1 MG/DL Total Bilirubin 0.2 0.1-1.0 MG/DL Aspartate Amino Transf (AST/SGOT) 11 5-34 U/L Alanine Aminotransferase (ALT/SGPT) 7 0-55 U/L Alkaline Phosphatase 159 H 40-136 U/L Total Protein 6.4 6.4-8.2 GM/DL Albumin 2.9 L 3.2-4.5 GM/DL OB - Assessment/Plan/Diagnosis Assessment Assessment: induction of labor Admission Dx 29 yo @ 37 weeks Mild PreE GBS neg Admission Status: Inpatient Order (span 2 midnights) Reason for Inpatient Admission: Induction at term, Preeclampsia Plan Plan: Induction Induction Method: per Misoprostol Protocol DOUGLAS CAVANAUGH DO Jan 15, 2020 21:25
[2020-01-15] MEDS ORDERED: MEASLES,MUMPS,RUBELLA 1 EA INJ SC SCH (21:30)
[2020-01-15] MEDS ORDERED: ONDANSETRON 4 MG/2 ML (SDV) Z0FRAN IVP PRN (21:30)
[2020-01-15] MEDS ORDERED: OXYTOCIN PRE-MIX DRIP 500 ML IV SCH (21:30)
[2020-01-15] MEDS ORDERED: TETANUS,DIPTH,PERTUSS P/F (BOOSTRIX) 0.5 ML VIAL IM SCH (21:30)
--- NOTE | 2020-01-15 21:30 | Progress Note ---
Standard Progress Note Progress Notes/Assess & Plan Date Seen by a Provider: Jan 15, 2020 Time Seen by a Provider: 21:28 Progress/Assessment & Plan Patient was admitted for induction of labor for mild preE. Started on oral misoprostol overnight due to unfavorable cervix /-2. About 1 hour after dosing, fetus began having variable heart rate decels into the 80s with sharp return, could not last picker contractions with external tocometry, however the decels appear to be in a contraction type patterns of every 2-3 min. Recheck showed no change in cervix, multiple position changes made, O2 given, IVF bolus given without resolution in decels. Discussed with patient indication of PLTCS for intolerance of labor. Risk reviewed, vs danger currently to with continued tracing as described. She was agreeable and ready to proceed once all questions were answered. DOUGLAS CAVANAUGH DO Jan 15, 2020 21:30
[2020-01-15] MEDS ORDERED: ONDANSETRON 4 MG/2 ML (SDV) Z0FRAN ONE (21:56)
[2020-01-15] MEDS ORDERED: LIDOCAINE PF 2% 5 ML (XYLOCAINE) VIAL ONE (21:56)
[2020-01-15] MEDS ORDERED: OXYTOCIN PRE-MIX DRIP 500 ML IV ONE ×2 (21:56→22:23)
[2020-01-15] MEDS ORDERED: CATHETER FLUSH 10 ML SYR IV SCH ×2 (22:00)
[2020-01-15] MEDS ORDERED: ONDANSETRON 4 MG/2 ML (SDV) Z0FRAN IV PRN (22:45)
[2020-01-15] MEDS ORDERED: NALOXONE 0.4 MG/ML 1 ML (NARCAN) VIAL IV PRN (22:45)
[2020-01-15] MEDS ORDERED: diphenhydrAMINE 50 MG/ML INJ (BENADRYL) IV PRN (22:45)
[2020-01-15] MEDS ORDERED: FAMOTIDINE 20MG/2ML IV (PEPCID) IV ONE (23:30)
[2020-01-15] MEDS ORDERED: METOCLOPRAMIDE INJ 10 MG/2 ML (REGLAN) IV ONE (23:30)
[2020-01-15] MEDS ORDERED: CITRIC ACID/SOB CIT (BICITRA) 30 ML UDC PO ONE (23:30)
[2020-01-15] MEDS: KETOROLAC 30 MG/ML VIAL IV SCH (23:58)
[2020-01-15] MEDS: METOCLOPRAMIDE 10 MG (REGLAN) TAB PO SCH (23:58)
[2020-01-16] MEDS ORDERED: LABETALOL 200 MG (NORMODYNE) TAB PO ONE
[2020-01-16 00:01] VITALS: BP 171/83
[2020-01-16] MEDS ORDERED: MISOPROSTOL 100 MCG (CYTOTEC) TAB PO SCH (00:15)
[2020-01-16 00:32] VITALS: BP 166/80
[2020-01-16] MEDS ORDERED: CITRIC ACID/SOB CIT (BICITRA) 30 ML UDC ONE (00:45)
[2020-01-16] MEDS ORDERED: METOCLOPRAMIDE INJ 10 MG/2 ML (REGLAN) ONE (00:45)
[2020-01-16] MEDS ORDERED: FAMOTIDINE 20MG/2ML IV (PEPCID) ONE (00:45)
[2020-01-16] MEDS ORDERED: ceFAZolin 2 GM IV Premixed 50 ML ONE (00:46)
--- NOTE | 2020-01-16 01:20 | NUR ---
Pt. up to bathroom with nurse assist. Pad and underwear put on. Clean gown put on. Pt. tolerated well, but unable to void at this time. Back to bed with assist.
[2020-01-16] MEDS: HYDROcodone/APAP 5 MG/325 MG (LORTAB) TAB PO PRN ×3 (01:37→19:41)
[2020-01-16 04:15] VITALS: BP 147/90
[2020-01-16] MEDS: METOCLOPRAMIDE 10 MG (REGLAN) TAB PO SCH ×2 (06:15→18:27)
[2020-01-16] MEDS: KETOROLAC 30 MG/ML VIAL IV SCH ×3 (06:15→18:27)
[2020-01-16 06:22] LABS: BASOPHILS % (AUTO) 0 % (0-10); EOSINOPHILS # (AUTO) 0.1 10^3/uL (0.0-0.3); EOSINOPHILS % (AUTO) 1 % (0-10); HEMATOCRIT 29 % (35-52); HEMOGLOBIN 9.5 G/DL (11.5-16.0); LYMPHOCYTES # (AUTO) 1.7 X 10^3 (1.0-4.0); LYMPHOCYTES % (AUTO) 19 % (12-44); MEAN CORPUSCULAR HEMOGLOBIN 28 PG (25-34); MEAN CORPUSCULAR HGB CONC 32 G/DL (32-36); MEAN CORPUSCULAR VOLUME 86 FL (80-99); MEAN PLATELET VOLUME 10.6 FL (7.4-10.4); MONOCYTES # (AUTO) 0.5 X 10^3 (0.0-1.0); MONOCYTES % (AUTO) 6 % (0-12); NEUTROPHILS # (AUTO) 6.5 X 10^3 (1.8-7.8); NEUTROPHILS % (AUTO) 74 % (42-75); PLATELET COUNT 157 10^3/uL (130-400); RED CELL DISTRIBUTION WIDTH 13.7 % (10.0-14.5); WHITE BLOOD COUNT 8.8 10^3/uL (4.3-11.0)
--- NOTE | 2020-01-16 06:46 | Anesthesia-Regional Post-Op ---
Regional Patient Condition Mental Status: Alert, Oriented x3 Circulation: Same as Pre-Op Headache: Absent Sensation: Full Recovery Motor Block: Absent Post Op Complications Complications None Follow Up Care/Instructions Patient Instructions None needed. Anesthesia/Patient Condition Patient is doing well, no complaints, stable vital signs, no apparent adverse anesthesia problems. No complications reported per nursing. D/C home per [facility] Criteria: No VINICIUS PARK CRNA Jan 16, 2020 06:46
--- NOTE | 2020-01-16 06:57 | OPERATIVE REPORT ---
DATE OF SERVICE: 01/15/2020 PREOPERATIVE DIAGNOSES: 1. A 29-year-old G3, P1 at 37 weeks' gestation. 2. intolerance of labor. 3. Preeclampsia. POSTOPERATIVE DIAGNOSES: 1. A 29-year-old G3, P1 at 37 weeks' gestation. 2. intolerance of labor. 3. Preeclampsia. PROCEDURE: Primary low transverse section. SURGEON: Brody Cavanaugh DO ANESTHESIA: Spinal. ESTIMATED BLOOD LOSS: 400 mL. URINE OUTPUT: 60 mL clear at the end of the procedure. FLUIDS: Two liters of lactated Ringer's solution. FINDINGS: Live female weighing 5 pounds 3 ounces, Apgars of 6 and 9. Grossly normal appearing uterus, bilateral fallopian tubes and ovaries. SPECIMEN SENT: Placenta. INDICATIONS FOR PROCEDURE: This 29-year-old female patient was brought in for induction at 37 weeks due to preeclampsia. The patient's blood pressures were elevated on admission. She had been started on oral labetalol approximately 4 weeks earlier and given betamethasone in preparation for possible early delivery. Her induction method due to her cervix being unfavorable was cervical ripening using Cytotec orally overnight. She received one dose of 100 mcg of p.o. Cytotec. Once contractions began with this dose, the fetus began having repetitive variable decelerations down into the 80s from a baseline of 130 to 140. This continued without any relief. There was still good beat to beat variability in between these variables, but due to the significance of these variables, I presented and discussed with the patient proceeding with primary section due to intolerance of labor. Risks of the procedure were discussed with the patient in detail and after all her questions were answered with her present, consent was obtained, the patient was taken to the operating room. OPERATIVE REPORT IN DETAIL: Once in the operating room, spinal analgesia was found to be adequate, placed in supine position with leftward tilt, prepped and draped in normal sterile fashion. A timeout was performed and anesthesia was tested. I then make a Pfannenstiel skin incision with a knife and carried down to the underlying fascia using Bovie cautery. The fascial incision extended laterally using Bovie cautery. Superior aspect of the fascial incision was then grasped with Farnaz clamps, tented up and dissected off the underlying rectus muscles. The inferior aspect of the fascial incision was then grasped with Farnaz clamps, tented up and dissected off the underlying rectus muscles. Rectus muscles were then dissected down the midline using Kennedy scissors, which exposed the peritoneum, which I entered bluntly and extended using blunt traction. He ring retractor was placed in the peritoneal incision, which offers excellent lateral sidewall retraction. I then identified the lower uterine segment, which was found to be thinned out and make a low transverse incision to the vesicouterine peritoneum and bluntly dissected off the lower uterine segment, creating a bladder flap. I then proceeded with my myotomy until membranes were visualized, which fornix extended the uterine incision laterally and superiorly using bandage scissors. Amniotomy was performed in the process of doing this and clear fluid was noted. The infant was then found in the vertex presentation. With gentle fundal pressure, the 's head was elevated up the incision where it was delivered through the incision. The nares and oropharynx were bulb suctioned and nuchal cord was reduced x2. Anterior and posterior shoulders were delivered and the was then brought to the operative field where the cord was doubly clamped and cut and handed off to Dr. Dover, who was present for delivery. Cord blood was collected. A 3-vessel cord with intact placenta was delivered spontaneously thereafter. IV Pitocin was initiated to facilitate uterine contraction. Uterine fundus confirmed by manual massage. Uterus was then exteriorized and cleared off all endometrial clots and debris. I then proceeded with closing the uterine incision using 0 Vicryl suture in a running locked fashion. A second layer of imbricating 0 Monocryl was placed. Excellent hemostasis was noted after doing this. I then placed the uterus back within the pelvis and copiously irrigated the pelvis using normal saline. Once again, there was no active bleeding noted from any of my dissection planes. I placed Interceed antiadhesive over my low transverse incision and then proceeded with closing the peritoneum after removing the He ring retractor. The peritoneum was reapproximated using 3-0 Vicryl suture in running fashion. The rectus muscle was reapproximated using 3-0 Vicryl suture in interrupted fashion. The fascia was reapproximated using 0 Vicryl suture in running fashion. Subcutaneous tissue was reapproximated using 3-0 plain in interrupted subcutaneous stitch and skin reapproximated using 4-0 Monocryl running subcuticular. Dermabond was applied to incision and sterile dressing was adhesed with white tape. The patient tolerated the procedure well and was taken to recovery area in stable condition. Lap and sponge was correct at the end of procedure. Instrument counts correct as well. Two grams of Ancef given preoperatively for infection prophylaxis. Job ID: [id number] DocumentID: [id number] Dictated Date: 01/15/2020 22:49:11 Fluorescent Lamp Replacer Date: 01/16/2020 06:57:23 Dictated By: BRODY CAVANAUGH DO
--- NOTE | 2020-01-16 07:28 | Postpartum Progress Note ---
JEFF HALEY,MED STUDENT 01/16/20 0728: Note Note Day # 1 Subjective: Patient is having some right sided abdominal pain, well controlled with oral pain medications. Has not been able to void yet. Tolerating a regular diet without nausea or vomiting. Normal lochia. Objective: Physical Exam: General - Alert and oriented, no apparent distress Abdomen - Soft, appropriately tender to palpation, non-distended, fundus firm at umbilicus Extremities - no edema Incision: clean, dry and intact Assessment: Post- day # 1, status post PLTCS Acute blood loss anemia Pre-eclampsia Plan: Routine care. Continue Labetalol Encourage breast feeding. Encourage ambulation. Ferrous sulfate supplementation. Plan for discharge tomorrow as long as blood pressure is stable Vitals - Labs Vital Signs - I&O Vital Signs Date Time Temp Pulse Resp B/P (MAP) Pulse Ox O2 Delivery O2 Flow Rate FiO2 01/16/20 04:15 36.6 72 18 147/90 (109) 97 Room Air 01/16/20 01:48 Room Air 01/16/20 00:32 36.6 72 18 166/80 (108) 97 Room Air 01/16/20 00:01 37.0 68 16 171/83 (112) 99 Room Air 01/15/20 23:30 36.5 16 159/99 (119) 96 Room Air 01/15/20 23:28 Room Air 01/15/20 23:20 20 147/89 (108) 96 Room Air 01/15/20 23:14 Room Air 01/15/20 23:10 16 137/79 (98) 97 Room Air 01/15/20 23:00 20 145/93 (110) 98 Room Air 01/15/20 23:00 Room Air 01/15/20 22:50 16 129/76 (93) 96 Room Air 01/15/20 22:43 37 17 122/71 (88) 97 Room Air 01/15/20 22:43 Room Air 01/15/20 20:17 36.8 88 18 97 Room Air I & O 01/16/20 07:00 Intake Total 3300 ml Output Total 60 ml Balance 3240 ml Labs Laboratory Tests 01/15/20 19:20: Urine Color YELLOW, Urine Clarity SL CLOUDY, Urine pH 5.5, Urine Specific [place] >=1.030, Urine Protein 2+H, Urine Glucose (UA) NEGATIVE, Urine Ketones NEGATIVE, Urine Nitrite NEGATIVE, Urine Bilirubin NEGATIVE, Urine Urobilinogen 1.0, Urine Leukocyte Esterase 2+H, Urine RBC (Auto) NEGATIVE, Urine RBC NONE, Urine WBC 5-10H, Urine Squamous Epithelial Cells 5-10, Urine Crystals PRESENTH, Urine Calcium Oxalate Crystals MODERATEH, Urine Bacteria MODERATEH, Urine Casts PRESENT, Urine Hyaline Casts RARE, Urine Mucus SMALLH, Urine Culture Indicated YES 01/15/20 20:12: White Blood Count 7.4, Red Blood Count 3.54L, Hemoglobin 10.0L, Hematocrit 30L, Mean Corpuscular Volume 86, Mean Corpuscular Hemoglobin 28, Mean Corpuscular Hemoglobin Concent 33, Red Cell Distribution Width 13.6, Platelet Count 200, Mean Platelet Volume 10.8H, Neutrophils (%) (Auto) 75, Lymphocytes (%) (Auto) 19, Monocytes (%) (Auto) 5, Eosinophils (%) (Auto) 1, Basophils (%) (Auto) 0, Neutrophils # (Auto) 5.6, Lymphocytes # (Auto) 1.4, Monocytes # (Auto) 0.4, Eosinophils # (Auto) 0.1, Basophils # (Auto) 0.0, Sodium Level 137, Potassium Level 3.7, Chloride Level 107, Carbon Dioxide Level 19L, Anion Gap 11, Blood Urea Nitrogen 12, Creatinine 0.83, Estimat Glomerular Filtration Rate > 60, BUN/Creatinine Ratio 14, Glucose Level 139H, Uric Acid 7.7H, Calcium Level 8.8, Corrected Calcium 9.7, Total Bilirubin 0.2, Aspartate Amino Transf (AST/SGOT) 11, Alanine Aminotransferase (ALT/SGPT) 7, Alkaline Phosphatase 159H, Total Protein 6.4, Albumin 2.9L 01/16/20 06:06: White Blood Count 8.8, Red Blood Count 3.40L, Hemoglobin 9.5L, Hematocrit 29L, Mean Corpuscular Volume 86, Mean Corpuscular Hemoglobin 28, Mean Corpuscular Hemoglobin Concent 32, Red Cell Distribution Width 13.7, Platelet Count 157, Mean Platelet Volume 10.6H, Neutrophils (%) (Auto) 74, Lymphocytes (%) (Auto) 19, Monocytes (%) (Auto) 6, Eosinophils (%) (Auto) 1, Basophils (%) (Auto) 0, Neutrophils # (Auto) 6.5, Lymphocytes # (Auto) 1.7, Monocytes # (Auto) 0.5, Eosinophils # (Auto) 0.1, Basophils # (Auto) 0.0 DOUGLAS CAVANAUGH DO 01/16/20 0802: Note Note May consider increasing labetalol if poor control today. Verification and Attestation of Medical Student E/M Service A medical student performed and documented this service in my presence. I reviewed and verified all information documented by the medical student and made modifications to such information, when appropriate. I personally performed the physical exam and medical decision making. Douglas Cavanaugh, Jan 16, 2020,08:02 JEFF HALEY,MED STUDENT Jan 16, 2020 07:28 DOUGLAS CAVANAUGH DO Jan 16, 2020 08:02
--- NOTE | 2020-01-16 08:04 | NUR ---
Dr Fine to room to see patient
--- NOTE | 2020-01-16 08:40 | NUR ---
vs taken. pt resting in bed. reports pain level 5 on 1/10 scale and denies need for pain medication.
[2020-01-16] MEDS: DOCUSATE SODIUM 100 MG (COLACE) CAP PO SCH ×2 (09:35→19:41)
[2020-01-16] MEDS: LABETALOL 200 MG (NORMODYNE) TAB PO SCH ×3 (09:35→23:08)
[2020-01-16 11:30] VITALS: BP 145/81
[2020-01-16 18:30] VITALS: BP 168/96
[2020-01-16 19:52] VITALS: BP 157/96
--- NOTE | 2020-01-16 20:22 | NUR ---
Dr. Fine updated on patient status. Orders received.
[2020-01-16] MEDS ORDERED: FUROSEMIDE 20 MG (LASIX) TAB PO NR (20:30)
[2020-01-17] VITALS (10 sets, daily range): BP systolic 139–162; BP diastolic 73–98
[2020-01-17] MEDS: METOCLOPRAMIDE 10 MG (REGLAN) TAB PO SCH ×4 (00:12→20:48)
[2020-01-17] MEDS: IBUPROFEN 600 MG (MOTRIN) TAB PO SCH ×4 (00:15→18:47)
--- NOTE | 2020-01-17 07:25 | Postpartum Progress Note ---
JEFF HALEY,MED STUDENT 01/17/20 0725: Note Note Day # 2 Subjective: Patient is without complaints. Ambulating, voiding. Tolerating a regular diet without nausea or vomiting. Normal lochia. Pain is well controlled with oral pain medications. Systolic blood pressures were increased into the upper 160's yesterday evening. Denies headache, vision changes, chest pain or shortness of breath. Objective: Physical Exam: General - Alert and oriented, no apparent distress Abdomen - Soft, appropriately tender to palpation, non-distended, fundus firm at umbilicus Extremities - no edema Incision- clean, dry and intact Assessment: Post- day # 2, status post PLTCS. Pre-eclampsia Acute blood loss anemia Plan: Consider increasing labetalol vs adding a CCB if blood pressures continue to stay elevated today Routine care. Encourage breast feeding. Encourage ambulation. Ferrous sulfate supplementation. Discharge tomorrow if blood pressures stay stable today Vitals - Labs Vital Signs - I&O Vital Signs Date Time Temp Pulse Resp B/P (MAP) Pulse Ox O2 Delivery O2 Flow Rate FiO2 01/17/20 05:50 36.2 97 18 144/90 (108) 97 Room Air 01/17/20 01:00 148/79 (102) 01/17/20 00:10 36.0 88 16 155/98 (117) 97 Room Air 01/16/20 19:52 36.0 87 18 157/96 (116) 97 Room Air 01/16/20 18:30 36.5 84 20 168/96 (120) 97 Room Air 01/16/20 11:30 36.4 79 20 145/81 (102) 98 01/16/20 08:40 36.5 77 20 96 I & O 01/17/20 07:00 Intake Total 2000 ml Output Total 1550 ml Balance 450 ml Labs Microbiology 01/15/20 Urine Culture - Final, Complete 3 or more isolates DOUGLAS CAVANAUGH DO 01/17/20 0819: Note Note Increasing Labetalol to 300 mg TID, and Lasix for 5 days 20 mg PO. Plan on sending home today if no more BP spikes Verification and Attestation of Medical Student E/M Service A medical student performed and documented this service in my presence. I reviewed and verified all information documented by the medical student and made modifications to such information, when appropriate. I personally performed the physical exam and medical decision making. Douglas Cavaanugh, Jan 17, 2020,08:19 JEFF HALEY,MED STUDENT Jan 17, 2020 07:25 DOUGLAS CAVANAUGH DO Jan 17, 2020 08:19
[2020-01-17] MEDS: DOCUSATE SODIUM 100 MG (COLACE) CAP PO SCH ×2 (07:39→20:48)
[2020-01-17] MEDS: LABETALOL 200 MG (NORMODYNE) TAB PO SCH ×4 (07:39→22:52)
[2020-01-17] MEDS ORDERED: IBUP-844 PO (08:23)
[2020-01-17] MEDS ORDERED: DCS100C PO (08:23)
[2020-01-17] MEDS ORDERED: FURO-125 PO (08:23)
[2020-01-17] MEDS ORDERED: LABE200T7 PO (08:23)
[2020-01-17] MEDS ORDERED: HYDR-83 PO (08:23)
--- NOTE | 2020-01-17 08:24 | Discharge Inst-Women's Service ---
Discharge Inst-Women's Serv Depart Medication/Instructions New, Converted or Re-Newed RX: RX on Chart Final Diagnosis POD 2 PLTCS, Preeclampsia Problems Reviewed?: Yes Consults/Follow Up Additional Follow Up: Yes Orders/Referrals Dr. Fine in 7-10 days and in 6 weeks Activity Activity: Activity as Tolerated Driving Instructions: No Driving for 1 Week NO SMOKING: NO SMOKING Nothing Inside Vagina: No Douching, No [place], No Tampons Diet Discharge Diet: No Restrictions Symptoms to Report to : Bleeding Excessive, Pain Increased, Fever Over 101 Degrees F, Vaginal Bleeding Increase, Questions/Concerns, Shortness of Breath For Any Problems or Questions: Contact Your Physician Skin/Wound Care Infection Signs and Symptoms: Increased Redness, Foul Odor of Wound, Increased Drainage, Skin Itchy or Has a Rash, Increased Swelling, Temperature Above 101 F Operative Area Clean and Dry: Keep Incision Clean/Dry Stitches/[place]/Dermabond: Dermabond, Care of Stitches Bathing Instructions: DOUGLAS Martinez DO Jan 17, 2020 8:24 am
[2020-01-17] MEDS ORDERED: amLODIPine 5 MG (NORVASC) TAB PO NR (17:45)
[2020-01-17] MEDS: HYDROcodone/APAP 5 MG/325 MG (LORTAB) TAB PO PRN (20:48)
--- NOTE | 2020-01-17 21:00 | NUR ---
Pt resting in bed. Assessment completed. Pt c/o headache. b/p elevated. lortab given. notified of b/p. No new orders received.
[2020-01-18] MEDS: IBUPROFEN 600 MG (MOTRIN) TAB PO SCH ×2 (00:07→06:04)
[2020-01-18 01:35] VITALS: BP 147/93
[2020-01-18] MEDS: METOCLOPRAMIDE 10 MG (REGLAN) TAB PO SCH ×2 (03:32→09:12)
[2020-01-18 04:11] VITALS: BP 147/92
--- NOTE | 2020-01-18 07:26 | Postpartum Progress Note ---
JEFF HALEY,MED STUDENT 01/18/20 0726: Note Note Day # 3 Subjective: Patient is without complaints. Ambulating, voiding. Tolerating a regular diet without nausea or vomiting. Normal lochia. Pain is well controlled with oral pain medications. Denies headache, vision change, chest pain or shortness of breath this morning. Objective: Physical Exam: General - Alert and oriented, no apparent distress Abdomen - Soft, appropriately tender to palpation, non-distended, fundus firm at umbilicus Extremities - no edema Incision: clean, dry, intact Assessment: Post- day # 3, status post PLTCS Pre-eclampsia Acute blood loss anemia Plan: Continue Labetalol 300mg TID and Lasix for 5 days. Add Norvasc if needed for further BP control. Routine care. Encourage breast feeding. Encourage ambulation. Ferrous sulfate supplementation. Discharge this afternoon if blood pressures remain stable Vitals - Labs Vital Signs - I&O Vital Signs Date Time Temp Pulse Resp B/P (MAP) Pulse Ox O2 Delivery O2 Flow Rate FiO2 01/18/20 04:11 36.5 85 20 147/92 (110) Room Air 01/18/20 01:35 36.5 79 20 147/93 (111) Room Air 01/17/20 20:43 36.4 86 20 162/87 (112) Room Air 01/17/20 18:50 36.4 91 20 151/88 (109) Room Air 01/17/20 17:05 36.6 87 20 152/82 (105) Room Air 01/17/20 15:00 36.3 96 20 157/94 (115) Room Air 01/17/20 13:10 36.6 77 20 161/87 (111) Room Air 01/17/20 10:30 36.3 76 18 159/87 (111) Room Air 01/17/20 07:30 36.3 77 20 139/73 (95) Room Air I & O 01/18/20 07:00 Intake Total 1200 ml Output Total 1600 ml Balance -400 ml Labs Microbiology 01/15/20 Urine Culture - Final, Complete 3 or more isolates DOUGLAS CAVANAUGH DO 01/18/20 0802: Note Note Adding 5 mg norvasc to bp regimen, once controlled today will dc home with preE precautions. Verification and Attestation of Medical Student E/M Service A medical student performed and documented this service in my presence. I reviewed and verified all information documented by the medical student and made modifications to such information, when appropriate. I personally performed the physical exam and medical decision making. Douglas Cavanaugh, Jan 18, 2020,08:02 JEFF HALEY,MED STUDENT Jan 18, 2020 07:26 DOUGLAS CAVANAUGH DO Jan 18, 2020 08:02
--- NOTE | 2020-01-18 08:00 | NUR ---
Dr Fine at bedside, Dr notified of BP this AM. discusses plan of care with pt at this time. Questions answered. Call light within reach.
[2020-01-18 08:03] VITALS: BP 177/94
[2020-01-18] MEDS ORDERED: AMLO5TAB4 PO (08:07)
[2020-01-18] MEDS ORDERED: FUROSEMIDE 20 MG (LASIX) TAB PO NR (08:15)
[2020-01-18] MEDS ORDERED: amLODIPine 10 MG (NORVASC) TAB ONE (08:17)
[2020-01-18] MEDS ORDERED: FUROSEMIDE 20 MG (LASIX) TAB ONE (08:18)
[2020-01-18] MEDS ORDERED: amLODIPine 5 MG (NORVASC) TAB PO NR (08:18)
[2020-01-18] MEDS: LABETALOL 200 MG (NORMODYNE) TAB PO SCH (09:12)
[2020-01-18] MEDS: DOCUSATE SODIUM 100 MG (COLACE) CAP PO SCH (09:12)
[2020-01-18 09:18] VITALS: BP 153/101
[2020-01-18 11:47] VITALS: BP 147/79
--- NOTE | 2020-01-18 11:48 | NUR ---
dr fine notified of current BP. Dr fine ok to DC to home at this time. Dr Fine wants to see her in office on .
== END 2020-01-18 12:50 | disposition home or self-care (01) | DRG 787 ==
LOC: LDRP 18:33
PROVIDERS: ADMIT Obstetrics & Gynecology; ATTEND Obstetrics & Gynecology
PROC: 10D00Z1 Extraction of Products of Conception, Low, Open Approach (ICD-10-PCS; principal; 2020-01-15 21:32)
DX: O14.04 Mild to moderate pre-eclampsia, complicating childbirth (principal); D62 Acute posthemorrhagic anemia; Z3A.37 37 weeks gestation of pregnancy; Z37.0 Single live birth; O77.9 Labor and delivery complicated by fetal stress, unspecified; O99.03 Anemia complicating the puerperium
CPT/HCPCS: 36415; 80053; 81000; 84550; 85025; 86850; 86900; 86901; 87088; 94664

== ENCOUNTER → 2022-12-23 | Outpatient (CLI) | payer BC ==
[~2022-12-23] MED LIST changes: +AMLO5TAB4 PO; +DOCU-239 PO; +FURO-125 PO; +HOLD METFORMIN - RECEIVED CONTRAST 20 ML VIAL IV SCH; +IBUP-844 PO; +IOHEXOL 350 MG/ML 100 ML (OMNIPAQUE 350) VIAL IV ONE; +LABE200T10 PO; -LABE200T7 PO; +NS 100 ML (IVPB) BAG IV ONE
--- NOTE | 2022-12-23 09:01 | Diagnostic Imaging Report ---
PROCEDURE: CT neck soft tissue with contrast. TECHNIQUE: Multiple contiguous axial images were obtained through the neck after the administration of contrast. Auto Exposure Controls were utilized during the CT exam to meet ALARA standards for radiation dose reduction. INDICATION: Lump under the jaw on the right. COMPARISON: None. Findings: The posterior nasopharynx and oropharynx demonstrate appropriate symmetry. There is no displacement of the parapharyngeal fat planes. There is no abnormal process evident within the prevertebral or retropharyngeal space. There is no evidence of abnormal thickening of the epiglottis or aryepiglottic folds. The vocal folds appear symmetric. The parotid, submandibular and thyroid gland are unremarkable. In the area of palpable abnormality in the right submandibular region an enlarged lymph node is seen measuring 1.5 x 1.3 cm and 1.6 cm craniocaudal. Additional smaller lymph nodes are seen in the bilateral submandibular regions and bilateral cervical lymph node chains. No discrete soft tissue mass or fluid collection in the neck. The vascular structures the neck demonstrate no evidence of high-grade stenosis on this nondedicated exam. The visualized lung apices are clear. The visualized intracranial contents demonstrate no evidence of pathologic intracranial enhancement or intracranial mass effect. Visualized orbital contents are unremarkable. The visualized paranasal sinuses are clear. Left-sided mastoid effusion is present. No acute osseous abnormality in the cervical spine. Impression: 1. Enlarged lymph node in the right submandibular region, representing the palpable abnormality delineated with an external BB. This is nonspecific and further characterization could be performed with focused ultrasound. Additional prominent lymph nodes are seen in the bilateral submandibular regions and bilateral cervical lymph node chains. 2. No soft tissue mass or fluid collection is identified in the neck. No airway compromise. 3. Left-sided mastoid effusion. Dictated by: Dictated on workstation # [id number]
== END ==
LOC: RAD 07:08
PROVIDERS: ATTEND Otolaryngology Otolaryngology/Facial Plastic Surgery
DX: H74.8X2 Other specified disorders of left middle ear and mastoid (principal); R59.9 Enlarged lymph nodes, unspecified
CPT/HCPCS: 70491

== ENCOUNTER 2022-12-29 05:39 | Outpatient (CLI) | payer BC ==
[~2022-12-29] VITALS: Ht 157.5 cm; Wt 106.8 kg
[~2022-12-29 05:39] MED LIST changes: -HOLD METFORMIN - RECEIVED CONTRAST 20 ML VIAL IV SCH; -IOHEXOL 350 MG/ML 100 ML (OMNIPAQUE 350) VIAL IV ONE; -NS 100 ML (IVPB) BAG IV ONE
[2022-12-29] MEDS ORDERED: FAMO20TA3 PO (13:58)
[2022-12-29] MEDS ORDERED: BUPR-168 PO (13:58)
[2022-12-29] MEDS ORDERED: METF-397 PO (13:58)
== END 2022-12-29 14:17 | disposition home or self-care (01) ==
LOC: PREOP 05:39
PROVIDERS: ATTEND Otolaryngology Otolaryngology/Facial Plastic Surgery
DX: Z01.818 Encounter for other preprocedural examination (principal)

== ENCOUNTER 2023-01-01 07:22 | Day surgery (SDC) | payer BC ==
[~2023-01-01] VITALS: Ht 160 cm; Wt 106.8 kg
[2023-01-01] VITALS (11 sets, daily range): BP systolic 105–138; BP diastolic 69–91
[~2023-01-01 07:22] MED LIST changes: +BUPR-168 PO; +FAMO20TA3 PO; +METF-397 PO
[2023-01-01] MEDS ORDERED: LACTATED RINGERS 1,000 ML IV PRN (07:30)
[2023-01-01 08:14] LABS: BASOPHILS % (AUTO) 0 % (0-10); EOSINOPHILS # (AUTO) 0.1 10^3/uL (0.0-0.3); EOSINOPHILS % (AUTO) 1 % (0-10); HEMATOCRIT 37 % (35-52); HEMOGLOBIN 12.2 g/dL (11.5-16.0); LYMPHOCYTES # (AUTO) 1.6 10^3/uL (1.0-4.0); LYMPHOCYTES % (AUTO) 29 % (12-44); MEAN CORPUSCULAR HEMOGLOBIN 27 pg (25-34); MEAN CORPUSCULAR HGB CONC 33 g/dL (32-36); MEAN CORPUSCULAR VOLUME 83 fL (80-99); MEAN PLATELET VOLUME 9.3 fL (9.0-12.2); MONOCYTES # (AUTO) 0.4 10^3/uL (0.0-1.0); MONOCYTES % (AUTO) 7 % (0-12); NEUTROPHILS # (AUTO) 3.5 10^3/uL (1.8-7.8); NEUTROPHILS % (AUTO) 63 % (42-75); PLATELET COUNT 251 10^3/uL (130-400); WHITE BLOOD COUNT 5.6 10^3/uL (4.3-11.0)
[2023-01-01 08:19] LABS: POTASSIUM 3.8 MMOL/L (3.6-5.0)
[2023-01-01 08:25] LABS: CREATININE SERUM 0.76 MG/DL (0.60-1.30)
[2023-01-01] MEDS ORDERED: LIDOCAINE PF 2% 5 ML (XYLOCAINE) VIAL ONE (09:25)
[2023-01-01] MEDS ORDERED: proPOfol 200 MG/20 ML (DIPRIVAN) VIAL IV ONE ×2 (09:25→11:14)
[2023-01-01] MEDS ORDERED: ROCURONIUM 50 MG/5 ML (ZEMURON) VIAL IV ONE (09:25)
[2023-01-01] MEDS ORDERED: ONDANSETRON 4 MG/2 ML (SDV) Z0FRAN ONE (09:25)
[2023-01-01] MEDS ORDERED: LIDOCAINE 1% INJ 20 ML VIAL ONE (09:26)
[2023-01-01] MEDS ORDERED: MIDAZOLAM 2 MG/2 ML (VERSED) VIAL ONE (09:26)
[2023-01-01] MEDS ORDERED: BUP/EPI 0.5% 1:200,000 (SENSORCAINE) 30 ML VIAL ONE (09:26)
[2023-01-01] MEDS ORDERED: MUPIROCIN 2% OINT 22 GM (BACTROBAN) TUBE ONE (09:26)
[2023-01-01] MEDS ORDERED: fentaNYL INJ 100 MCG/2 ML AMP ONE (09:26)
[2023-01-01] MEDS ORDERED: NEO/POLY/BAC (NEOSPORIN) OINT 15 GM TUBE ONE (09:26)
--- NOTE | 2023-01-01 09:47 | Progress Note-Pre Operative ---
Pre-Operative Progress Note Date of Available H&P: Jan 01, 2023 Date H&P Reviewed: Jan 01, 2023 Time H&P Reviewed: 09:30 History & Physical: H&P Reviewed, Patient Examed, No changes noted Changes from last HP none Pre-Operative Diagnosis: Right Cervical Adenopathy DOUGLAS SANTIAGO MD Jan 01, 2023 09:47
--- NOTE | 2023-01-01 09:48 | Progress Note-Post Operative ---
Post-Operative Progess Note Surgeon (s)/Salvage Mechanic (s) Surgeon DOUGLAS SANTIAGO MD Salvage Mechanic n/a Pre-Operative Diagnosis Right Cervical Adenopathy Post-Operative Diagnosis same Post-Op Procedure Note Date of Procedure: Jan 01, 2023 Name of Procedure Performed: Excisional Biopsy of Right Cervical Lymph NOde Description & Findings Description and Findings: n/a Anesthesia Type get Estimated Blood Loss minimal Packing none. Specimen(s) collected/removed right cervical lymph node to pathology DOUGLAS SANTIAGO MD Jan 01, 2023 09:47
[2023-01-01] MEDS ORDERED: LIDOCAINE/EPI 1%-1:100,000 (XYLOCAINE) 20ML ONE (09:51)
[2023-01-01] MEDS ORDERED: HYDROcodone/APAP 5 MG/325 MG (LORTAB) TAB PO PRN (10:00)
[2023-01-01] MEDS ORDERED: ACETAMINOPHEN 325 MG TABLET PO PRN (10:00)
[2023-01-01] MEDS ORDERED: NEOSTIGMINE (BLOXIVERZ ) 1 MG/1ML 10 ML VIAL ONE (10:44)
[2023-01-01] MEDS ORDERED: GLYCOPYRROLATE 0.2 MG/ML (ROBINUL) 2 ML VIAL ONE (10:45)
[2023-01-01] MEDS ORDERED: RT-ALBUTEROL HFA 8.5 GM INHALER IH ONE (11:42)
[2023-01-01] MEDS ORDERED: morphine INJ 10 MG/ML 1ML (SYR OR VIAL) IVP ONE (12:15)
[2023-01-01] MEDS ORDERED: ONDANSETRON 4 MG/2 ML (SDV) Z0FRAN IVP PRN (12:15)
[2023-01-01] MEDS ORDERED: fentaNYL INJ 100 MCG/2 ML AMP IVP ONE (12:15)
--- NOTE | 2023-01-01 12:22 | Anesthesia-General Post-Op ---
General Patient Condition Mental Status/LOC: Same as Preop Cardiovascular: Satisfactory Nausea/Vomiting: Absent Respiratory: Satisfactory Pain: Controlled Complications: Absent Post Op Complications Complications None Follow Up Care/Instructions Patient Instructions None needed. Anesthesia/Patient Condition Patient Condition Patient is doing well, no complaints, stable vital signs, no apparent adverse anesthesia problems. No complications reported per nursing. BRANDON COHEN CRNA Jan 01, 2023 12:22
[2023-01-01] MEDS ORDERED: CEPH500T PO (12:29)
[2023-01-01] MEDS ORDERED: ACHD5005 PO (12:29)
== END 2023-01-01 14:20 | disposition home or self-care (01) ==
LOC: SDC 07:22
PROVIDERS: ATTEND Otolaryngology Otolaryngology/Facial Plastic Surgery
DX: R59.0 Localized enlarged lymph nodes (principal); G47.33 Obstructive sleep apnea (adult) (pediatric); Z99.81 Dependence on supplemental oxygen
CPT/HCPCS: 36415; 80048; 82947; 84703; 85025; 87081